=== PATIENT | male | born 1940 | race Two or more races ===

== ENCOUNTER 2018-07-19 08:43 | Emergency (ER) | payer MEDICARE ==
[~2018-07-19] VITALS: Ht 170.2 cm; Wt 86.0 kg
[~2018-07-19 08:43] MED LIST: CARV-50 PO; POTA10TA36 PO; WARF-65 PO
[2018-07-19] MEDS ORDERED: colchicine 0.6mg tablet PO ONE (08:55)
[2018-07-19 10:10] LABS: ALANINE AMINOTRANSFERASE 32 U/L (12-78); ALBUMIN 3.2 G/DL (3.4-5.0); ALBUMIN/GLOBULIN RATIO 0.8 (1.1-1.5); ALKALINE PHOSPHATASE 171 IU/L (46-116); ANION GAP 9 (8-16); ASPARTATE AMINO TRANSFERASE 29 U/L (10-37); BILIRUBIN,TOTAL 1.9 MG/DL (0.1-1.0); BLOOD UREA NITROGEN 31 MG/DL (7-18); BUN/CREATININE RATIO 29.2 (5.4-32.0); C-REACTIVE PROTEIN 1.04 MG/DL (0.0-0.5); CALCIUM 9.2 MG/DL (8.5-10.1); CHLORIDE 102 MMOL/L (99-107); CREATININE 1.06 MG/DL (0.60-1.10); GLUCOSE 96 MG/DL (70-104); POTASSIUM 3.6 MMOL/L (3.5-5.1); SODIUM 139 MMOL/L (135-145); TOTAL PROTEIN 7.2 G/DL (6.4-8.2); eGFR 68 ML/MIN
[2018-07-19 10:45] LABS: BASOPHILS % (AUTO) 0.4 % (0-1); EOSINOPHILS # (AUTO) 0.1 X10'3 (0-0.9); EOSINOPHILS % (AUTO) 1.4 % (0-6); HEMATOCRIT 40.7 % (42.0-52.0); HEMOGLOBIN 13.7 g/dl (14.0-17.9); LYMPHOCYTES # (AUTO) 0.7 X10'3 (1.1-4.8); LYMPHOCYTES % (AUTO) 7.6 % (21-51); MEAN CORPUSCULAR HEMOGLOBIN 28.6 PG (27.0-31.0); MEAN CORPUSCULAR HGB CONC 33.6 g/dL (33.0-36.5); MEAN CORPUSCULAR VOLUME 85.1 FL (78-98); MEAN PLATELET VOLUME 10.2 FL (7.4-10.4); MONOCYTES % (AUTO) 11.4 % (2-12); NEUTROPHILS % (AUTO) 79.2 % (42-75); PLATELET COUNT 180 X10'3 (140-440); RED BLOOD COUNT 4.78 X10'6 (4.70-6.10); RED CELL DISTRIBUTION WIDTH 17.4 % (11.5-14.5); WHITE BLOOD COUNT 8.8 X10'3 (4.5-11.0)
[2018-07-19] MEDS ORDERED: HYDROcodone/acetaminophen 10/325mg tab PO ONE (10:55)
[2018-07-19] MEDS ORDERED: HYDR-4353 PO (11:11)
[2018-07-19 11:48] VITALS: BP 122/66
== END 2018-07-19 11:49 | disposition home or self-care (01) ==
LOC: ER 08:44
DX: M25.522 Pain in left elbow (principal); M25.422 Effusion, left elbow; I48.91 Unspecified atrial fibrillation; E78.00 Pure hypercholesterolemia, unspecified; I13.0 Hypertensive heart and chronic kidney disease with heart failure and stage 1 through stage 4 chronic kidney disease, or unspecified chronic kidney disease; N18.9 Chronic kidney disease, unspecified; I50.9 Heart failure, unspecified; Z90.49 Acquired absence of other specified parts of digestive tract; Z95.0 Presence of cardiac pacemaker; Z79.01 Long term (current) use of anticoagulants; Z79.899 Other long term (current) drug therapy
CPT/HCPCS: 36415; 73080; 80053; 85025; 85651; 86140; 99284

== ENCOUNTER 2021-12-09 16:35 | Emergency (ER) | payer BC, MEDICARE ==
[~2021-12-09] VITALS: Ht 167.6 cm; Wt 72.7 kg
[~2021-12-09 16:35] MED LIST changes: +ATOR20TA66 PO; -CARV-50 PO; +CARV25TA2 PO; +FURO40TA4 PO; +LISI20TA28 PO; -POTA10TA36 PO; +SPIR25TA5 PO; -WARF-65 PO; +WARF1TAB83 PO
[2021-12-09 18:03] LABS: BASOPHILS % (AUTO) 0.5 % (0-1); EOSINOPHILS % (AUTO) 0.5 % (0-6); HEMATOCRIT 34.6 % (42.0-52.0); HEMOGLOBIN 11.5 g/dl (14.0-17.9); LYMPHOCYTES # (AUTO) 0.5 X10'3 (1.1-4.8); LYMPHOCYTES % (AUTO) 13.5 % (21-51); MEAN CORPUSCULAR HEMOGLOBIN 29.2 PG (27.0-31.0); MEAN CORPUSCULAR HGB CONC 33.3 g/dL (33.0-36.5); MEAN CORPUSCULAR VOLUME 87.6 FL (78-98); MEAN PLATELET VOLUME 10.8 FL (7.4-10.4); MONOCYTES # (AUTO) 0.4 X10'3 (0-0.9); MONOCYTES % (AUTO) 11.1 % (2-12); NEUTROPHILS # (AUTO) 2.8 X10'3 (1.8-7.7); NEUTROPHILS % (AUTO) 74.4 % (42-75); PLATELET COUNT 72 X10'3 (140-440); RED BLOOD COUNT 3.94 X10'6 (4.70-6.10); RED CELL DISTRIBUTION WIDTH 16.5 % (11.5-14.5); WHITE BLOOD COUNT 3.8 X10'3 (4.5-11.0)
[2021-12-09 18:15] LABS: ALANINE AMINOTRANSFERASE 48 U/L (12-78); ALBUMIN 3.8 G/DL (3.4-5.0); ALBUMIN/GLOBULIN RATIO 1.2 (1.1-1.5); ALKALINE PHOSPHATASE 144 IU/L (46-116); ANION GAP 9 (8-16); ASPARTATE AMINO TRANSFERASE 40 U/L (10-37); BILIRUBIN,TOTAL 0.8 MG/DL (0.1-1.0); BLOOD UREA NITROGEN 31 MG/DL (7-18); BUN/CREATININE RATIO 22.3 (5.4-32.0); CALCIUM 8.6 MG/DL (8.5-10.1); CHLORIDE 108 MMOL/L (99-107); CREATININE 1.39 MG/DL (0.60-1.10); GLUCOSE 107 MG/DL (70-104); POTASSIUM 4.7 MMOL/L (3.5-5.1); SODIUM 140 MMOL/L (135-145); TOTAL CARBON DIOXIDE 23.5 MMOL/L (24-32); eGFR 49 ML/MIN
[2021-12-09 18:28] LABS: CLARITY,URINE SLIGHTLY CLOUDY (Clear); COLOR,URINE YELLOW (Yellow); GLUCOSE, URINE NEGATIVE (Neg); KETONES,URINE NEGATIVE (Neg); LEUKOCYTE ESTERASE ,URINE NEGATIVE (Neg); NITRITES, URINE NEGATIVE (Neg); OCCULT BLOOD,URINE LARGE (Neg); PROTEIN,URINE NEGATIVE (Neg); UROBILINOGEN,URINE 0.2 E.U/dL (0.2-1.0)
[2021-12-09 18:43] LABS: UA COLLECTION TYPE STRAIGHT CATH
[2021-12-09 18:45] LABS: BACTERIA,URINE NONE SEEN /HPF (Neg); MUCUS STRANDS NONE SEEN /LPF (Neg); RBC,URINE TNTC /HPF (0-2); SQUAMOUS EPITHELIAL CELL,UR NONE SEEN /LPF (FEW); WBC,URINE 0-4 /HPF (0-4)
[2021-12-09] MEDS ORDERED: LIDOcaine 2% 10ml TOPICAL JELLY (Urojet) MM ONE (20:15)
[2021-12-09 20:52] VITALS: BP 115/63
== END 2021-12-09 20:56 | disposition home or self-care (01) ==
LOC: ER 16:36
DX: R33.9 Retention of urine, unspecified (principal); R10.9 Unspecified abdominal pain; I48.91 Unspecified atrial fibrillation; E78.00 Pure hypercholesterolemia, unspecified; I13.0 Hypertensive heart and chronic kidney disease with heart failure and stage 1 through stage 4 chronic kidney disease, or unspecified chronic kidney disease; N18.9 Chronic kidney disease, unspecified; Z90.89 Acquired absence of other organs; Z95.0 Presence of cardiac pacemaker; Z79.899 Other long term (current) drug therapy
CPT/HCPCS: 51702; 80053; 81001; 85025; 99284; A4358

== ENCOUNTER 2022-01-20 12:30 | Emergency (ER) | payer BC ==
[~2022-01-20] VITALS: Ht 167.6 cm; Wt 73.6 kg
[~2022-01-20 12:30] MED LIST changes: +ALBU8.5H17 INH; +CARV-49 PO; -CARV25TA2 PO; +CEFD300C3 PO; +FURO-150 PO; -FURO40TA4 PO; +LACT1CAP26 PO; +PRED20TA PO
[2022-01-20 12:37] VITALS: BP 115/73
[2022-01-20] MEDS ORDERED: LIDOcaine 2% 10ml TOPICAL JELLY (Urojet) TP ONE (14:20)
[2022-01-20 15:12] LABS: CLARITY,URINE CLOUDY (Clear); COLOR,URINE YELLOW (Yellow); GLUCOSE, URINE NEGATIVE (Neg); KETONES,URINE NEGATIVE (Neg); LEUKOCYTE ESTERASE ,URINE TRACE (Neg); NITRITES, URINE NEGATIVE (Neg); OCCULT BLOOD,URINE LARGE (Neg); PROTEIN,URINE 30 mg/dl (Neg); UROBILINOGEN,URINE 0.2 E.U/dL (0.2-1.0)
[2022-01-20 15:18] LABS: UA COLLECTION TYPE VOIDED
[2022-01-20 15:19] LABS: BACTERIA,URINE NONE SEEN /HPF (Neg); MUCUS STRANDS NONE SEEN /LPF (Neg); RBC,URINE 50-100 /HPF (0-2); SQUAMOUS EPITHELIAL CELL,UR NONE SEEN /LPF (FEW); WBC,URINE 0-4 /HPF (0-4)
[2022-01-21] MEDS ORDERED: FLO0.4C PO (14:23)
== END 2022-01-20 15:52 | disposition home or self-care (01) ==
LOC: ER 12:30
DX: T83.098A Other mechanical complication of other urinary catheter, initial encounter (principal); R33.9 Retention of urine, unspecified; I48.91 Unspecified atrial fibrillation; I50.9 Heart failure, unspecified; I13.0 Hypertensive heart and chronic kidney disease with heart failure and stage 1 through stage 4 chronic kidney disease, or unspecified chronic kidney disease; N18.9 Chronic kidney disease, unspecified; E78.00 Pure hypercholesterolemia, unspecified; Z90.49 Acquired absence of other specified parts of digestive tract; Z95.0 Presence of cardiac pacemaker; Y83.9 Surgical procedure, unspecified as the cause of abnormal reaction of the patient, or of later complication, without mention of misadventure at the time of the procedure; Y92.89 Other specified places as the place of occurrence of the external cause
CPT/HCPCS: 51702; 81001; 87088; 99284; A4314; A4340; A4358

== ENCOUNTER 2022-01-21 00:20 | Emergency (ER) | payer BC ==
[~2022-01-21] VITALS: Ht 170.2 cm; Wt 73.6 kg
[2022-01-21 00:45] VITALS: BP_DIAS 78
[2022-01-21 01:33] LABS: BASOPHILS % (AUTO) 0.1 % (0-1); EOSINOPHILS # (AUTO) 0.1 X10'3 (0-0.9); EOSINOPHILS % (AUTO) 0.5 % (0-6); HEMATOCRIT 39.9 % (42.0-52.0); LYMPHOCYTES # (AUTO) 0.6 X10'3 (1.1-4.8); LYMPHOCYTES % (AUTO) 4.9 % (21-51); MEAN CORPUSCULAR HEMOGLOBIN 29.8 PG (27.0-31.0); MEAN CORPUSCULAR HGB CONC 32.4 g/dL (33.0-36.5); MEAN CORPUSCULAR VOLUME 91.9 FL (78-98); MEAN PLATELET VOLUME 10.4 FL (7.4-10.4); MONOCYTES # (AUTO) 1.4 X10'3 (0-0.9); MONOCYTES % (AUTO) 10.4 % (2-12); NEUTROPHILS % (AUTO) 84.1 % (42-75); PLATELET COUNT 147 X10'3 (140-440); RED BLOOD COUNT 4.34 X10'6 (4.70-6.10); RED CELL DISTRIBUTION WIDTH 18.5 % (11.5-14.5); WHITE BLOOD COUNT 13.1 X10'3 (4.5-11.0)
[2022-01-21] MEDS ORDERED: metoprolol tartrate 50mg tablet PO ONE (01:35)
[2022-01-21 01:39] LABS: ALANINE AMINOTRANSFERASE 70 U/L (12-78); ALBUMIN 3.3 G/DL (3.4-5.0); ALKALINE PHOSPHATASE 119 IU/L (46-116); ANION GAP 7 (8-16); ASPARTATE AMINO TRANSFERASE 37 U/L (10-37); BLOOD UREA NITROGEN 41 MG/DL (7-18); BUN/CREATININE RATIO 35.7 (5.4-32.0); CALCIUM 8.6 MG/DL (8.5-10.1); CHLORIDE 104 MMOL/L (99-107); CREATININE 1.15 MG/DL (0.60-1.10); GLUCOSE 110 MG/DL (70-104); POTASSIUM 4.4 MMOL/L (3.5-5.1); SODIUM 140 MMOL/L (135-145); TOTAL CARBON DIOXIDE 28.7 MMOL/L (24-32); TOTAL PROTEIN 6.5 G/DL (6.4-8.2); eGFR 61 ML/MIN
[2022-01-21] MEDS ORDERED: metoprolol tartrate 25mg tablet PO ONE (01:40)
[2022-01-21 01:45] VITALS: BP_SYST 113
[2022-01-21 01:47] LABS: MAGNESIUM 1.7 MG/DL (1.5-2.4)
[2022-01-21] MEDS ORDERED: FLO0.4C PO (14:23)
== END 2022-01-21 02:45 | disposition home or self-care (01) ==
LOC: ER 00:21
DX: I48.91 Unspecified atrial fibrillation (principal); R33.9 Retention of urine, unspecified; N18.9 Chronic kidney disease, unspecified; E78.00 Pure hypercholesterolemia, unspecified; I13.0 Hypertensive heart and chronic kidney disease with heart failure and stage 1 through stage 4 chronic kidney disease, or unspecified chronic kidney disease; I50.9 Heart failure, unspecified; Z90.49 Acquired absence of other specified parts of digestive tract; Z95.0 Presence of cardiac pacemaker
CPT/HCPCS: 36415; 71045; 80053; 83735; 83880; 84484; 85025; 93005; 99285

== ENCOUNTER 2022-01-21 10:04 | Emergency (ER) | payer BC ==
[~2022-01-21] VITALS: Ht 170.2 cm; Wt 71.9 kg
[2022-01-21 10:50] VITALS: BP 111/67
[2022-01-21] MEDS ORDERED: FLO0.4C PO (14:23)
== END 2022-01-21 14:52 | disposition home or self-care (01) ==
LOC: ER 10:05
DX: R33.9 Retention of urine, unspecified (principal); I48.91 Unspecified atrial fibrillation; E78.00 Pure hypercholesterolemia, unspecified; I13.0 Hypertensive heart and chronic kidney disease with heart failure and stage 1 through stage 4 chronic kidney disease, or unspecified chronic kidney disease; N18.9 Chronic kidney disease, unspecified; Z90.89 Acquired absence of other organs; Z95.0 Presence of cardiac pacemaker; Z87.440 Personal history of urinary (tract) infections; Z79.2 Long term (current) use of antibiotics; Z79.899 Other long term (current) drug therapy
CPT/HCPCS: 99284

== ENCOUNTER 2022-01-25 22:58 | Emergency (ER) | payer BC ==
[~2022-01-25] VITALS: Ht 170.2 cm; Wt 63.5 kg
[~2022-01-25 22:58] MED LIST changes: +FLO0.4C PO
[2022-01-26 00:17] LABS: BASOPHILS % (AUTO) 0.5 % (0-1); EOSINOPHILS # (AUTO) 0.1 X10'3 (0-0.9); EOSINOPHILS % (AUTO) 1.1 % (0-6); HEMATOCRIT 38.6 % (42.0-52.0); HEMOGLOBIN 12.7 g/dl (14.0-17.9); LYMPHOCYTES # (AUTO) 0.7 X10'3 (1.1-4.8); LYMPHOCYTES % (AUTO) 6.6 % (21-51); MEAN CORPUSCULAR HEMOGLOBIN 29.9 PG (27.0-31.0); MEAN CORPUSCULAR HGB CONC 32.9 g/dL (33.0-36.5); MEAN CORPUSCULAR VOLUME 90.8 FL (78-98); MEAN PLATELET VOLUME 9.8 FL (7.4-10.4); MONOCYTES # (AUTO) 0.9 X10'3 (0-0.9); MONOCYTES % (AUTO) 8.8 % (2-12); NEUTROPHILS # (AUTO) 8.4 X10'3 (1.8-7.7); PLATELET COUNT 151 X10'3 (140-440); RED BLOOD COUNT 4.25 X10'6 (4.70-6.10); WHITE BLOOD COUNT 10.2 X10'3 (4.5-11.0)
[2022-01-26 00:23] VITALS: BP 113/74
[2022-01-26 00:25] LABS: ALANINE AMINOTRANSFERASE 69 U/L (12-78); ALBUMIN 3.5 G/DL (3.4-5.0); ALBUMIN/GLOBULIN RATIO 0.9 (1.1-1.5); ALKALINE PHOSPHATASE 141 IU/L (46-116); ANION GAP 8 (8-16); ASPARTATE AMINO TRANSFERASE 42 U/L (10-37); BILIRUBIN,TOTAL 1.2 MG/DL (0.1-1.0); BLOOD UREA NITROGEN 36 MG/DL (7-18); CHLORIDE 106 MMOL/L (99-107); GLUCOSE 142 MG/DL (70-104); LIPASE 411 U/L (73-393); POTASSIUM 4.8 MMOL/L (3.5-5.1); SODIUM 140 MMOL/L (135-145); TOTAL CARBON DIOXIDE 25.7 MMOL/L (24-32); TOTAL PROTEIN 7.3 G/DL (6.4-8.2); eGFR 58 ML/MIN
== END 2022-01-26 00:58 | disposition home or self-care (01) ==
LOC: ER 22:58
DX: T83.098A Other mechanical complication of other urinary catheter, initial encounter (principal); I13.0 Hypertensive heart and chronic kidney disease with heart failure and stage 1 through stage 4 chronic kidney disease, or unspecified chronic kidney disease; E13.22 Other specified diabetes mellitus with diabetic chronic kidney disease; N18.9 Chronic kidney disease, unspecified; Z90.49 Acquired absence of other specified parts of digestive tract; Z79.899 Other long term (current) drug therapy
CPT/HCPCS: 36415; 80053; 83690; 85025; 99283

== ENCOUNTER 2022-01-27 01:59 | Emergency (ER) | payer BC ==
[~2022-01-27] VITALS: Ht 170.2 cm; Wt 73.4 kg
[2022-01-27] MEDS ORDERED: HYDROcodone/acetaminophen 5mg/325mg tablet PO ONE (04:20)
--- NOTE | 2022-01-27 04:56 | NUR ---
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 PT C/O INCREASED DISCOMFORT, MD NOTIFIED, ORDERS. MEDICATED WITH NORCO. DC'D CATHETER WITH SEVERAL SM BLOOD CLOTS NOTED AND REPLACED WITH [address] HAN'S ORDERS. PT TOLERATED WITH MILD DISCOMFORT. RESTING QUIETLY NOW WHILE URINE IS DRAINING.
[2022-01-27 05:34] VITALS: BP 111/70
== END 2022-01-27 05:25 | disposition home or self-care (01) ==
LOC: ER 02:00
DX: T85.9XXA Unspecified complication of internal prosthetic device, implant and graft, initial encounter (principal); I13.0 Hypertensive heart and chronic kidney disease with heart failure and stage 1 through stage 4 chronic kidney disease, or unspecified chronic kidney disease; E11.22 Type 2 diabetes mellitus with diabetic chronic kidney disease; N18.9 Chronic kidney disease, unspecified; Z90.49 Acquired absence of other specified parts of digestive tract; Z79.899 Other long term (current) drug therapy
CPT/HCPCS: 99283; C1758; J7030; A4338; A4358; A5200

== ENCOUNTER 2022-01-29 09:29 | Emergency (ER) | payer BC ==
[~2022-01-29] VITALS: Ht 170.2 cm; Wt 74.1 kg
[2022-01-29] MEDS ORDERED: LIDOcaine 2% 10ml TOPICAL JELLY (Urojet) MM ONE (10:35)
[2022-01-29 12:09] VITALS: BP 127/60
[2022-01-30] MEDS ORDERED: CEPH250T PO (16:46)
== END 2022-01-29 12:15 | disposition home or self-care (01) ==
LOC: ER 09:29
DX: R33.9 Retention of urine, unspecified (principal); I13.0 Hypertensive heart and chronic kidney disease with heart failure and stage 1 through stage 4 chronic kidney disease, or unspecified chronic kidney disease; I48.91 Unspecified atrial fibrillation; N18.9 Chronic kidney disease, unspecified; I50.9 Heart failure, unspecified; E78.00 Pure hypercholesterolemia, unspecified; Z90.49 Acquired absence of other specified parts of digestive tract; Z95.0 Presence of cardiac pacemaker
CPT/HCPCS: 51702; 99284; A4314; A4340; A4357; A4358

== ENCOUNTER 2022-01-30 14:16 | Emergency (ER) | payer BC ==
[~2022-01-30] VITALS: Ht 170.2 cm; Wt 72.7 kg
[2022-01-30 14:50] VITALS: BP 135/68
--- NOTE | 2022-01-30 15:55 | NUR ---
reposition of cath re-established urine flow. 600ml urine out ua sent to lab
[2022-01-30 16:12] LABS: CLARITY,URINE CLOUDY (Clear); COLOR,URINE YELLOW (Yellow); GLUCOSE, URINE NEGATIVE (Neg); KETONES,URINE NEGATIVE (Neg); LEUKOCYTE ESTERASE ,URINE TRACE (Neg); NITRITES, URINE NEGATIVE (Neg); OCCULT BLOOD,URINE LARGE (Neg); PH,URINE 5.5 (4.8-8.0); PROTEIN,URINE 100 mg/dl (Neg); UROBILINOGEN,URINE 0.2 E.U/dL (0.2-1.0)
[2022-01-30 16:42] LABS: UA COLLECTION TYPE STRAIGHT CATH
[2022-01-30 16:43] LABS: BACTERIA,URINE 2+ /HPF (Neg); RBC,URINE TNTC /HPF (0-2); SQUAMOUS EPITHELIAL CELL,UR FEW /LPF (FEW)
[2022-01-30 16:44] LABS: MUCUS STRANDS FEW /LPF (Neg)
[2022-01-30] MEDS ORDERED: CEPH250T PO (16:46)
== END 2022-01-30 16:55 | disposition home or self-care (01) ==
LOC: ER 14:18
DX: T83.091A Other mechanical complication of indwelling urethral catheter, initial encounter (principal); N39.0 Urinary tract infection, site not specified; I48.91 Unspecified atrial fibrillation; I13.0 Hypertensive heart and chronic kidney disease with heart failure and stage 1 through stage 4 chronic kidney disease, or unspecified chronic kidney disease; N18.9 Chronic kidney disease, unspecified; E78.00 Pure hypercholesterolemia, unspecified; Z87.440 Personal history of urinary (tract) infections; Z90.89 Acquired absence of other organs; Z95.0 Presence of cardiac pacemaker; Z79.2 Long term (current) use of antibiotics; Z79.899 Other long term (current) drug therapy; Y84.6 Urinary catheterization as the cause of abnormal reaction of the patient, or of later complication, without mention of misadventure at the time of the procedure
CPT/HCPCS: 51798; 81001; 87088; 99284

== ENCOUNTER 2022-01-31 12:37 | Emergency (ER) | payer BC ==
[~2022-01-31] VITALS: Ht 170.2 cm; Wt 72.7 kg
[~2022-01-31 12:37] MED LIST changes: +CEPH250T PO
[2022-01-31 12:48] VITALS: BP 128/68
--- NOTE | 2022-01-31 15:30 | NUR ---
deflated balloon, min cath inserted further, now draining dark yellow urine, 700ml out. Pt said he was feeling better, instructed pt to keep leg bag higher up on leg and to check placement everytime he stands or sits down. Pt verbalized understanding,
== END 2022-01-31 16:07 | disposition home or self-care (01) ==
LOC: ER 12:38
DX: T83.091A Other mechanical complication of indwelling urethral catheter, initial encounter (principal); R33.9 Retention of urine, unspecified; R10.84 Generalized abdominal pain; I48.91 Unspecified atrial fibrillation; E78.00 Pure hypercholesterolemia, unspecified; I13.0 Hypertensive heart and chronic kidney disease with heart failure and stage 1 through stage 4 chronic kidney disease, or unspecified chronic kidney disease; N18.9 Chronic kidney disease, unspecified; Z87.440 Personal history of urinary (tract) infections; Z90.89 Acquired absence of other organs; Z95.0 Presence of cardiac pacemaker; Z79.2 Long term (current) use of antibiotics; Z79.899 Other long term (current) drug therapy; Y84.6 Urinary catheterization as the cause of abnormal reaction of the patient, or of later complication, without mention of misadventure at the time of the procedure
CPT/HCPCS: 99281

== ENCOUNTER 2022-02-03 04:46 | Emergency (ER) | payer BC ==
[~2022-02-03] VITALS: Ht 170.2 cm; Wt 73.6 kg
[2022-02-03 05:24] VITALS: BP 116/77
--- NOTE | 2022-02-03 05:24 | NUR ---
CATHETER BALLON DEFLATED, REPOSITIONED CATHETER PLACEMENT, REINFLATED BALLON. CATHETER NOW DRAINING AND PATENT
== END 2022-02-03 06:06 | disposition home or self-care (01) ==
LOC: ER 04:47
DX: T83.098A Other mechanical complication of other urinary catheter, initial encounter (principal); I48.91 Unspecified atrial fibrillation; I13.0 Hypertensive heart and chronic kidney disease with heart failure and stage 1 through stage 4 chronic kidney disease, or unspecified chronic kidney disease; I50.9 Heart failure, unspecified; N18.9 Chronic kidney disease, unspecified; Z95.0 Presence of cardiac pacemaker; Z90.49 Acquired absence of other specified parts of digestive tract
CPT/HCPCS: 99284

== ENCOUNTER 2022-02-09 17:54 | Inpatient (IN) | payer BC ==
[~2022-02-09] VITALS: Ht 170.2 cm; Wt 72.7 kg
[~2022-02-09 17:54] MED LIST changes: -CEPH250T PO
[2022-02-09 18:27] LABS: BASOPHILS # (AUTO) 0.1 X10'3 (0-0.2); BASOPHILS % (AUTO) 0.8 % (0-1); EOSINOPHILS # (AUTO) 0.2 X10'3 (0-0.9); HEMATOCRIT 38.2 % (42.0-52.0); HEMOGLOBIN 12.2 g/dl (14.0-17.9); LYMPHOCYTES # (AUTO) 0.8 X10'3 (1.1-4.8); LYMPHOCYTES % (AUTO) 9.9 % (21-51); MEAN CORPUSCULAR HEMOGLOBIN 29.4 PG (27.0-31.0); MEAN CORPUSCULAR VOLUME 91.9 FL (78-98); MEAN PLATELET VOLUME 9.7 FL (7.4-10.4); MONOCYTES # (AUTO) 0.9 X10'3 (0-0.9); MONOCYTES % (AUTO) 11.4 % (2-12); NEUTROPHILS # (AUTO) 5.8 X10'3 (1.8-7.7); NEUTROPHILS % (AUTO) 75.9 % (42-75); PLATELET COUNT 200 X10'3 (140-440); RED BLOOD COUNT 4.16 X10'6 (4.70-6.10); RED CELL DISTRIBUTION WIDTH 17.1 % (11.5-14.5); WHITE BLOOD COUNT 7.7 X10'3 (4.5-11.0)
[2022-02-09 18:37] LABS: ALANINE AMINOTRANSFERASE 40 U/L (12-78); ALBUMIN 3.4 G/DL (3.4-5.0); ALKALINE PHOSPHATASE 126 IU/L (46-116); ANION GAP 8 (8-16); ASPARTATE AMINO TRANSFERASE 32 U/L (10-37); BILIRUBIN,TOTAL 1.4 MG/DL (0.1-1.0); BLOOD UREA NITROGEN 35 MG/DL (7-18); CALCIUM 9.1 MG/DL (8.5-10.1); CHLORIDE 104 MMOL/L (99-107); CREATININE 1.13 MG/DL (0.60-1.10); GLUCOSE 105 MG/DL (70-104); POTASSIUM 4.4 MMOL/L (3.5-5.1); SODIUM 139 MMOL/L (135-145); TOTAL CARBON DIOXIDE 27.1 MMOL/L (24-32); TOTAL PROTEIN 6.9 G/DL (6.4-8.2); eGFR 62 ML/MIN
[2022-02-09 18:45] LABS: MAGNESIUM 1.7 MG/DL (1.5-2.4); PHOSPHORUS 3.8 MG/DL (2.3-4.5)
[2022-02-09] MEDS ORDERED: amiodarone 150mg/dext, iso-os 100 ML IV ONE (18:55)
[2022-02-09] MEDS ORDERED: potassium Cl 20 mEq SR tablet PO PRN ×2 (20:10)
[2022-02-09] MEDS ORDERED: ondansetron/PF 4mg/2ml inj IV PRN (20:10)
[2022-02-09] MEDS ORDERED: morphine 2 MG/ML inj. syringe IV PRN (20:10)
[2022-02-09] MEDS ORDERED: acetaminophen 325mg tablet PO PRN ×2 (20:10)
[2022-02-09] MEDS ORDERED: HYDROcodone/acetaminophen 5mg/325mg tablet PO PRN (20:10)
[2022-02-09] MEDS ORDERED: magnesium 4gm in 100ml NS 100 ML IV PRN (20:10)
[2022-02-09] MEDS ORDERED: magnesium Cl slow-release 64mg tablet PO PRN (20:10)
[2022-02-09] MEDS ORDERED: potassium Cl 40MEQ/1/2NS 520ml 520 ML IV PRN (20:10)
[2022-02-09] MEDS: furosemide 20 MG/2 ML vial IV SCH (21:53)
[2022-02-09] MEDS ORDERED: CARV6.253 PO (23:42)
[2022-02-09] MEDS ORDERED: FURO20TA4 PO (23:42)
[2022-02-09 23:49] VITALS: BP 122/64
[2022-02-10 02:00] VITALS: BP 103/67
[2022-02-10] MEDS: temazepam 15mg capsule PO PRN ×2 (02:22→20:45)
[2022-02-10 06:27] LABS: BASOPHILS # (AUTO) 0.1 X10'3 (0-0.2); BASOPHILS % (AUTO) 0.7 % (0-1); EOSINOPHILS # (AUTO) 0.1 X10'3 (0-0.9); EOSINOPHILS % (AUTO) 1.9 % (0-6); HEMATOCRIT 36.6 % (42.0-52.0); LYMPHOCYTES # (AUTO) 0.9 X10'3 (1.1-4.8); LYMPHOCYTES % (AUTO) 12.5 % (21-51); MEAN CORPUSCULAR HEMOGLOBIN 29.7 PG (27.0-31.0); MEAN CORPUSCULAR HGB CONC 32.8 g/dL (33.0-36.5); MEAN CORPUSCULAR VOLUME 90.6 FL (78-98); MEAN PLATELET VOLUME 10.1 FL (7.4-10.4); MONOCYTES # (AUTO) 0.8 X10'3 (0-0.9); MONOCYTES % (AUTO) 11.9 % (2-12); NEUTROPHILS # (AUTO) 5.2 X10'3 (1.8-7.7); PLATELET COUNT 181 X10'3 (140-440); RED BLOOD COUNT 4.04 X10'6 (4.70-6.10); RED CELL DISTRIBUTION WIDTH 16.7 % (11.5-14.5); WHITE BLOOD COUNT 7.1 X10'3 (4.5-11.0)
[2022-02-10 06:42] LABS: ALANINE AMINOTRANSFERASE 32 U/L (12-78); ALBUMIN 3.1 G/DL (3.4-5.0); ALKALINE PHOSPHATASE 115 IU/L (46-116); ANION GAP 4 (8-16); ASPARTATE AMINO TRANSFERASE 27 U/L (10-37); BILIRUBIN,TOTAL 1.1 MG/DL (0.1-1.0); BLOOD UREA NITROGEN 35 MG/DL (7-18); BUN/CREATININE RATIO 29.4 (5.4-32.0); CALCIUM 9.1 MG/DL (8.5-10.1); CHLORIDE 104 MMOL/L (99-107); CREATININE 1.19 MG/DL (0.60-1.10); GLUCOSE 96 MG/DL (70-104); SODIUM 135 MMOL/L (135-145); TOTAL PROTEIN 6.3 G/DL (6.4-8.2); eGFR 59 ML/MIN
--- NOTE | 2022-02-10 06:51 | NUR ---
Patient in room PCU 3018. I have received report from Gwen GARVIN and had the opportunity to ask questions and assume patient care.
[2022-02-10 06:58] VITALS: BP 119/68
[2022-02-10] MEDS: lisinopril 20mg tablet PO SCH (07:33)
[2022-02-10] MEDS: heparin, porcine 5000 units/ml vial SQ SCH ×2 (07:33→20:47)
[2022-02-10] MEDS: furosemide 20 MG/2 ML vial IV SCH ×2 (07:33→20:55)
[2022-02-10] MEDS: atorvastatin 20mg tablet PO SCH (07:33)
[2022-02-10] MEDS: carVEDilol 3.125mg tablet PO SCH ×2 (07:33→20:46)
[2022-02-10] MEDS: spironolactone 25 MG tablet PO SCH (07:34)
[2022-02-10] MEDS: K and/or MAG REPLACEMENT MC SCH ×2 (07:34→20:00)
[2022-02-10] MEDS ORDERED: FLU VACC QS2022-23(6MOS UP)/PF 60 MCG/0.5 ML SYRINGE IMVAC ONE (10:30)
[2022-02-10 11:30] VITALS: BP 107/59
[2022-02-10] MEDS ORDERED: FLO0.4C PO (12:21)
[2022-02-10] MEDS ORDERED: FURO40TA4 PO (12:21)
[2022-02-10] MEDS ORDERED: CARV6.253 PO (12:21)
--- NOTE | 2022-02-10 14:14 | NUR ---
PAGER ID: [phone] MESSAGE: [id number] Grigalba, new onset sharp tenderness in RUQ, abdomen more distended than this am. x2 BM today. Giving zofran for stomach upset, vital signs wnl. Thank you, Mel GARVIN
[2022-02-10 15:30] VITALS: BP 113/62
[2022-02-10 18:00] VITALS: BP 104/45
--- NOTE | 2022-02-10 18:20 | NUR ---
Problems reprioritized. Patient report given, questions answered & plan of care reviewed with Belia GARVIN.
[2022-02-10 22:00] VITALS: BP 109/55
[2022-02-11 02:00] VITALS: BP 113/67
--- NOTE | 2022-02-11 06:05 | NUR ---
Problems reprioritized. Patient report given, questions answered & plan of care reviewed with Mel GARVIN.
[2022-02-11 07:33] LABS: BASOPHILS # (AUTO) 0.1 X10'3 (0-0.2); BASOPHILS % (AUTO) 0.9 % (0-1); EOSINOPHILS # (AUTO) 0.2 X10'3 (0-0.9); EOSINOPHILS % (AUTO) 2.7 % (0-6); HEMATOCRIT 34.5 % (42.0-52.0); HEMOGLOBIN 11.4 g/dl (14.0-17.9); LYMPHOCYTES # (AUTO) 0.7 X10'3 (1.1-4.8); LYMPHOCYTES % (AUTO) 10.2 % (21-51); MEAN CORPUSCULAR HEMOGLOBIN 29.9 PG (27.0-31.0); MEAN CORPUSCULAR HGB CONC 33.2 g/dL (33.0-36.5); MEAN CORPUSCULAR VOLUME 90.3 FL (78-98); MONOCYTES # (AUTO) 0.8 X10'3 (0-0.9); MONOCYTES % (AUTO) 11.2 % (2-12); NEUTROPHILS # (AUTO) 5.4 X10'3 (1.8-7.7); PLATELET COUNT 152 X10'3 (140-440); RED BLOOD COUNT 3.82 X10'6 (4.70-6.10); RED CELL DISTRIBUTION WIDTH 16.9 % (11.5-14.5); WHITE BLOOD COUNT 7.2 X10'3 (4.5-11.0)
[2022-02-11] MEDS: furosemide 20 MG/2 ML vial IV SCH ×2 (07:57→20:38)
[2022-02-11] MEDS: lisinopril 20mg tablet PO SCH (07:58)
[2022-02-11] MEDS: atorvastatin 20mg tablet PO SCH (07:58)
[2022-02-11] MEDS: carVEDilol 3.125mg tablet PO SCH ×2 (07:58→20:37)
[2022-02-11] MEDS: heparin, porcine 5000 units/ml vial SQ SCH ×2 (07:58→20:30)
[2022-02-11] MEDS: spironolactone 25 MG tablet PO SCH (07:58)
[2022-02-11] MEDS: K and/or MAG REPLACEMENT MC SCH ×2 (08:00→20:00)
[2022-02-11 08:06] LABS: ALANINE AMINOTRANSFERASE 27 U/L (12-78); ALBUMIN 2.8 G/DL (3.4-5.0); ALKALINE PHOSPHATASE 103 IU/L (46-116); ANION GAP 7 (8-16); ASPARTATE AMINO TRANSFERASE 29 U/L (10-37); BILIRUBIN,TOTAL 1.3 MG/DL (0.1-1.0); BLOOD UREA NITROGEN 34 MG/DL (7-18); BUN/CREATININE RATIO 30.4 (5.4-32.0); CALCIUM 8.9 MG/DL (8.5-10.1); CHLORIDE 104 MMOL/L (99-107); CREATININE 1.12 MG/DL (0.60-1.10); GLUCOSE 88 MG/DL (70-104); SODIUM 135 MMOL/L (135-145); TOTAL CARBON DIOXIDE 24.5 MMOL/L (24-32); TOTAL PROTEIN 5.7 G/DL (6.4-8.2); eGFR 63 ML/MIN
[2022-02-11 08:21] VITALS: BP 113/58
[2022-02-11 10:38] VITALS: BP 96/54
[2022-02-11 15:03] VITALS: BP 108/63
[2022-02-11 18:00] VITALS: BP 111/64
[2022-02-11] MEDS: amiodarone 200mg tablet PO SCH (20:29)
[2022-02-11] MEDS: temazepam 15mg capsule PO PRN (21:50)
[2022-02-11 22:00] VITALS: BP 102/58
[2022-02-12 02:09] VITALS: BP 103/54
--- NOTE | 2022-02-12 06:41 | NUR ---
Problems reprioritized. Patient report given, questions answered & plan of care reviewed with darcie GARVIN.
--- NOTE | 2022-02-12 06:50 | NUR ---
Patient in room PCU 3018. I have received report from Vanna and had the opportunity to ask questions and assume patient care.
[2022-02-12 06:55] LABS: BASOPHILS # (AUTO) 0.1 X10'3 (0-0.2); BASOPHILS % (AUTO) 0.7 % (0-1); EOSINOPHILS # (AUTO) 0.3 X10'3 (0-0.9); EOSINOPHILS % (AUTO) 3.4 % (0-6); HEMATOCRIT 35.8 % (42.0-52.0); HEMOGLOBIN 11.8 g/dl (14.0-17.9); LYMPHOCYTES # (AUTO) 0.6 X10'3 (1.1-4.8); LYMPHOCYTES % (AUTO) 7.9 % (21-51); MEAN CORPUSCULAR HEMOGLOBIN 29.8 PG (27.0-31.0); MEAN CORPUSCULAR VOLUME 90.4 FL (78-98); MEAN PLATELET VOLUME 10.2 FL (7.4-10.4); MONOCYTES % (AUTO) 12.8 % (2-12); NEUTROPHILS # (AUTO) 5.6 X10'3 (1.8-7.7); NEUTROPHILS % (AUTO) 75.2 % (42-75); PLATELET COUNT 158 X10'3 (140-440); RED BLOOD COUNT 3.96 X10'6 (4.70-6.10); RED CELL DISTRIBUTION WIDTH 16.6 % (11.5-14.5); WHITE BLOOD COUNT 7.4 X10'3 (4.5-11.0)
[2022-02-12 07:31] LABS: ALBUMIN/GLOBULIN RATIO 0.9 (1.1-1.5); ANION GAP 6 (8-16); ASPARTATE AMINO TRANSFERASE 28 U/L (10-37); BILIRUBIN,TOTAL 1.7 MG/DL (0.1-1.0); BLOOD UREA NITROGEN 37 MG/DL (7-18); BUN/CREATININE RATIO 25.3 (5.4-32.0); CHLORIDE 101 MMOL/L (99-107); CREATININE 1.46 MG/DL (0.60-1.10); GLUCOSE 86 MG/DL (70-104); POTASSIUM 4.3 MMOL/L (3.5-5.1); SODIUM 136 MMOL/L (135-145); TOTAL CARBON DIOXIDE 29.2 MMOL/L (24-32); TOTAL PROTEIN 6.2 G/DL (6.4-8.2); eGFR 46 ML/MIN
[2022-02-12 07:32] LABS: ALANINE AMINOTRANSFERASE 29 U/L (12-78); ALKALINE PHOSPHATASE 110 IU/L (46-116)
[2022-02-12 07:53] VITALS: BP 107/65
[2022-02-12] MEDS: K and/or MAG REPLACEMENT MC SCH (08:00)
[2022-02-12] MEDS: spironolactone 25 MG tablet PO SCH (08:12)
[2022-02-12] MEDS: carVEDilol 3.125mg tablet PO SCH (08:12)
[2022-02-12] MEDS: atorvastatin 20mg tablet PO SCH (08:12)
[2022-02-12] MEDS: heparin, porcine 5000 units/ml vial SQ SCH (08:12)
[2022-02-12] MEDS: amiodarone 200mg tablet PO SCH (08:13)
[2022-02-12] MEDS: lisinopril 20mg tablet PO SCH (08:37)
[2022-02-12] MEDS: furosemide 20 MG/2 ML vial IV SCH (08:37)
[2022-02-12 11:14] VITALS: BP 97/53
[2022-02-12] MEDS ORDERED: TRAZ-251 PO (14:51)
[2022-02-12] MEDS ORDERED: AMIO200T67 PO (14:51)
[2022-02-12 15:30] VITALS: BP 95/58
--- NOTE | 2022-02-12 17:01 | NUR ---
Agree with assessment charted by Ashanti Robert LVN.
== END 2022-02-12 16:53 | disposition home or self-care (01) | DRG 314 ==
LOC: ER 17:54 → ED HOLD 20:12 → PCU 3S 23:35
PROVIDERS: ADMIT Internal Medicine; ATTEND Family Medicine
DX: T82.119A Breakdown (mechanical) of unspecified cardiac electronic device, initial encounter (principal); I50.23 Acute on chronic systolic (congestive) heart failure; T82.118A Breakdown (mechanical) of other cardiac electronic device, initial encounter; I13.0 Hypertensive heart and chronic kidney disease with heart failure and stage 1 through stage 4 chronic kidney disease, or unspecified chronic kidney disease; I48.91 Unspecified atrial fibrillation; E78.00 Pure hypercholesterolemia, unspecified; I25.10 Atherosclerotic heart disease of native coronary artery without angina pectoris; N18.30 Chronic kidney disease, stage 3 unspecified; N40.0 Benign prostatic hyperplasia without lower urinary tract symptoms; E78.5 Hyperlipidemia, unspecified; Y71.2 Prosthetic and other implants, materials and accessory cardiovascular devices associated with adverse incidents; D64.9 Anemia, unspecified; Y83.8 Other surgical procedures as the cause of abnormal reaction of the patient, or of later complication, without mention of misadventure at the time of the procedure; Z79.01 Long term (current) use of anticoagulants; Z90.49 Acquired absence of other specified parts of digestive tract; Z95.810 Presence of automatic (implantable) cardiac defibrillator; Y92.89 Other specified places as the place of occurrence of the external cause
CPT/HCPCS: 36415; 71045; 80053; 83735; 83880; 84100; 84484; 85025; 85610; 87081; 90686; 93005; 93308; 96365; 97116; 97161; 97530; 99285; G0378; J0282; J1644; J1940; J2405

== ENCOUNTER 2022-02-21 20:18 | Emergency (ER) | payer BC ==
[~2022-02-21] VITALS: Ht 170.2 cm; Wt 72.0 kg
[~2022-02-21 20:18] MED LIST changes: -ALBU8.5H17 INH; +AMIO200T67 PO; -CARV-49 PO; +CARV6.253 PO; -CEFD300C3 PO; -FURO-150 PO; +FURO40TA4 PO; -LACT1CAP26 PO; -PRED20TA PO; +TRAZ-251 PO
[2022-02-21 20:21] VITALS: BP 136/79
[2022-02-21] MEDS ORDERED: LIDOcaine 2% 10ml TOPICAL JELLY (Urojet) MM ONE (21:10)
--- NOTE | 2022-02-21 21:46 | NUR ---
Dr Webber made aware that the mni was changed and nice yellow urine output now and that the old catheter had a clot stuck in the tip of it.
--- NOTE | 2022-02-21 22:19 | NUR ---
pt updated that Dr Lyon is here and will see him shortly
== END 2022-02-21 22:46 | disposition home or self-care (01) ==
LOC: ER 20:19
DX: T83.86XA Thrombosis due to genitourinary prosthetic devices, implants and grafts, initial encounter (principal); E78.00 Pure hypercholesterolemia, unspecified; G89.29 Other chronic pain; I13.0 Hypertensive heart and chronic kidney disease with heart failure and stage 1 through stage 4 chronic kidney disease, or unspecified chronic kidney disease; N18.9 Chronic kidney disease, unspecified; I50.9 Heart failure, unspecified; Z79.899 Other long term (current) drug therapy
CPT/HCPCS: 51702; 93005; 99284; A4358

== ENCOUNTER 2022-03-07 16:44 | Emergency (ER) | payer BC ==
[~2022-03-07] VITALS: Ht 170.2 cm; Wt 68.2 kg
[2022-03-07 17:54] VITALS: BP 108/77
[2022-03-07 18:09] LABS: BASOPHILS % (AUTO) 0.6 % (0-1); EOSINOPHILS % (AUTO) 0.2 % (0-6); HEMATOCRIT 40.9 % (42.0-52.0); HEMOGLOBIN 13.3 g/dl (14.0-17.9); LYMPHOCYTES # (AUTO) 0.8 X10'3 (1.1-4.8); MEAN CORPUSCULAR HEMOGLOBIN 29.3 PG (27.0-31.0); MEAN CORPUSCULAR HGB CONC 32.6 g/dL (33.0-36.5); MEAN PLATELET VOLUME 9.4 FL (7.4-10.4); MONOCYTES % (AUTO) 11.9 % (2-12); NEUTROPHILS # (AUTO) 6.7 X10'3 (1.8-7.7); NEUTROPHILS % (AUTO) 78.3 % (42-75); PLATELET COUNT 244 X10'3 (140-440); RED BLOOD COUNT 4.55 X10'6 (4.70-6.10); RED CELL DISTRIBUTION WIDTH 17.3 % (11.5-14.5); WHITE BLOOD COUNT 8.6 X10'3 (4.5-11.0)
[2022-03-07 18:21] LABS: ALANINE AMINOTRANSFERASE 105 U/L (12-78); ALBUMIN 3.7 G/DL (3.4-5.0); ALBUMIN/GLOBULIN RATIO 1.1 (1.1-1.5); ALKALINE PHOSPHATASE 149 IU/L (46-116); ANION GAP 12 (8-16); ASPARTATE AMINO TRANSFERASE 82 U/L (10-37); BILIRUBIN,TOTAL 1.8 MG/DL (0.1-1.0); BLOOD UREA NITROGEN 71 MG/DL (7-18); CALCIUM 9.3 MG/DL (8.5-10.1); CHLORIDE 102 MMOL/L (99-107); CREATININE 2.03 MG/DL (0.60-1.10); GLUCOSE 92 MG/DL (70-104); POTASSIUM 4.8 MMOL/L (3.5-5.1); SODIUM 136 MMOL/L (135-145); TOTAL CARBON DIOXIDE 21.6 MMOL/L (24-32); TOTAL PROTEIN 7.2 G/DL (6.4-8.2); eGFR 32 ML/MIN
[2022-03-07 18:48] LABS: CLARITY,URINE CLEAR (Clear); COLOR,URINE YELLOW (Yellow); GLUCOSE, URINE NEGATIVE (Neg); KETONES,URINE NEGATIVE (Neg); LEUKOCYTE ESTERASE ,URINE SMALL (Neg); NITRITES, URINE NEGATIVE (Neg); OCCULT BLOOD,URINE SMALL (Neg); PROTEIN,URINE NEGATIVE (Neg); UROBILINOGEN,URINE 0.2 E.U/dL (0.2-1.0)
[2022-03-07 18:52] LABS: UA COLLECTION TYPE FOLEY CATH
[2022-03-07 18:55] LABS: BACTERIA,URINE 1+ /HPF (Neg); RBC,URINE 0-2 /HPF (0-2); SQUAMOUS EPITHELIAL CELL,UR FEW /LPF (FEW); WBC CLUMPS,URINE FEW /HPF (NEGATIVE)
[2022-03-07] MEDS ORDERED: CEPH-585 PO (21:31)
[2022-03-07] MEDS ORDERED: cephalexin 500mg capsule PO ONE (21:35)
--- NOTE | 2022-03-07 21:55 | NUR ---
took off his leg securement device. Deflated balloon to the min and advanced it per MD orders and reinflated balloon and new securement device to right thigh and an extra securement device given to the pt.
== END 2022-03-07 21:58 | disposition home or self-care (01) ==
LOC: ER 16:45
DX: T83.9XXA Unspecified complication of genitourinary prosthetic device, implant and graft, initial encounter (principal); N39.0 Urinary tract infection, site not specified; I11.9 Hypertensive heart disease without heart failure; E78.00 Pure hypercholesterolemia, unspecified; I13.2 Hypertensive heart and chronic kidney disease with heart failure and with stage 5 chronic kidney disease, or end stage renal disease; E11.22 Type 2 diabetes mellitus with diabetic chronic kidney disease; N18.6 End stage renal disease; Z90.49 Acquired absence of other specified parts of digestive tract; Z79.1 Long term (current) use of non-steroidal anti-inflammatories (NSAID); Z79.899 Other long term (current) drug therapy; Z79.2 Long term (current) use of antibiotics
CPT/HCPCS: 36415; 71045; 74176; 80053; 81001; 85025; 87077; 87088; 87186; 93005; 99285; A5200

== ENCOUNTER 2022-03-09 23:47 | Emergency (ER) | payer BC ==
[~2022-03-09] VITALS: Ht 170.2 cm; Wt 72.7 kg
[~2022-03-09 23:47] MED LIST changes: +CEPH-585 PO
[2022-03-10 07:31] LABS: CLARITY,URINE CLOUDY (Clear); COLOR,URINE YELLOW (Yellow); GLUCOSE, URINE NEGATIVE (Neg); KETONES,URINE NEGATIVE (Neg); LEUKOCYTE ESTERASE ,URINE TRACE (Neg); NITRITES, URINE NEGATIVE (Neg); OCCULT BLOOD,URINE LARGE (Neg); PH,URINE 5.5 (4.8-8.0); PROTEIN,URINE 100 mg/dl (Neg); UROBILINOGEN,URINE 0.2 E.U/dL (0.2-1.0)
[2022-03-10 07:38] LABS: UA COLLECTION TYPE CLN CATCH MIDSTREAM
[2022-03-10 07:40] LABS: RBC,URINE TNTC /HPF (0-2)
[2022-03-10 07:41] LABS: BACTERIA,URINE 1+ /HPF (Neg); SQUAMOUS EPITHELIAL CELL,UR FEW /LPF (FEW)
[2022-03-10 07:42] LABS: WBC CLUMPS,URINE FEW /HPF (NEGATIVE)
[2022-03-10 07:46] LABS: BASOPHILS % (AUTO) 0.6 % (0-1); EOSINOPHILS % (AUTO) 0.6 % (0-6); HEMOGLOBIN 14.2 g/dl (14.0-17.9); LYMPHOCYTES # (AUTO) 0.8 X10'3 (1.1-4.8); LYMPHOCYTES % (AUTO) 11.1 % (21-51); MEAN CORPUSCULAR HEMOGLOBIN 29.8 PG (27.0-31.0); MEAN CORPUSCULAR VOLUME 90.4 FL (78-98); MEAN PLATELET VOLUME 9.3 FL (7.4-10.4); MONOCYTES # (AUTO) 0.9 X10'3 (0-0.9); MONOCYTES % (AUTO) 11.7 % (2-12); NEUTROPHILS # (AUTO) 5.7 X10'3 (1.8-7.7); PLATELET COUNT 249 X10'3 (140-440); RED BLOOD COUNT 4.76 X10'6 (4.70-6.10); RED CELL DISTRIBUTION WIDTH 17.4 % (11.5-14.5); WHITE BLOOD COUNT 7.5 X10'3 (4.5-11.0)
--- NOTE | 2022-03-10 07:48 | NUR ---
Educated the on min cath care and how to deflate and inflate the balloon. Pt reviewed the process with me and stated that he understood the process. The brother also stated that he understood the process.
[2022-03-10 07:57] LABS: ALANINE AMINOTRANSFERASE 116 U/L (12-78); ALBUMIN 3.7 G/DL (3.4-5.0); ALKALINE PHOSPHATASE 163 IU/L (46-116); ANION GAP 11 (8-16); ASPARTATE AMINO TRANSFERASE 76 U/L (10-37); BILIRUBIN,TOTAL 1.5 MG/DL (0.1-1.0); BLOOD UREA NITROGEN 73 MG/DL (7-18); BUN/CREATININE RATIO 36.9 (5.4-32.0); CALCIUM 9.2 MG/DL (8.5-10.1); CHLORIDE 104 MMOL/L (99-107); CREATININE 1.98 MG/DL (0.60-1.10); GLUCOSE 92 MG/DL (70-104); POTASSIUM 5.5 MMOL/L (3.5-5.1); SODIUM 137 MMOL/L (135-145); TOTAL CARBON DIOXIDE 22.5 MMOL/L (24-32); TOTAL PROTEIN 7.4 G/DL (6.4-8.2); eGFR 33 ML/MIN
[2022-03-10 08:05] LABS: MAGNESIUM 2.2 MG/DL (1.5-2.4)
[2022-03-10 11:58] VITALS: BP 138/87
== END 2022-03-10 12:00 | disposition home or self-care (01) ==
LOC: ER 23:47
DX: T83.038A Leakage of other urinary catheter, initial encounter (principal); E87.5 Hyperkalemia; R10.30 Lower abdominal pain, unspecified; R06.02 Shortness of breath; I48.91 Unspecified atrial fibrillation; E78.00 Pure hypercholesterolemia, unspecified; I13.0 Hypertensive heart and chronic kidney disease with heart failure and stage 1 through stage 4 chronic kidney disease, or unspecified chronic kidney disease; N18.9 Chronic kidney disease, unspecified; Z87.440 Personal history of urinary (tract) infections; Z90.89 Acquired absence of other organs; Z95.0 Presence of cardiac pacemaker; Z79.2 Long term (current) use of antibiotics; Z79.899 Other long term (current) drug therapy; Y84.6 Urinary catheterization as the cause of abnormal reaction of the patient, or of later complication, without mention of misadventure at the time of the procedure
CPT/HCPCS: 36415; 51702; 71045; 80053; 81001; 83735; 83880; 84145; 84484; 85025; 87088; 93005; 99285; A4358

== ENCOUNTER 2022-04-05 11:15 | Emergency (ER) | payer BC ==
[~2022-04-05] VITALS: Ht 170.2 cm; Wt 72.0 kg
[~2022-04-05 11:15] MED LIST changes: -CEPH-585 PO
[2022-04-05 15:39] LABS: BASOPHILS # (AUTO) 0.1 X10'3 (0-0.2); BASOPHILS % (AUTO) 0.7 % (0-1); EOSINOPHILS % (AUTO) 0 % (0-6); HEMATOCRIT 38.9 % (42.0-52.0); HEMOGLOBIN 12.5 g/dl (14.0-17.9); LYMPHOCYTES # (AUTO) 0.3 X10'3 (1.1-4.8); LYMPHOCYTES % (AUTO) 2.7 % (21-51); MEAN CORPUSCULAR HEMOGLOBIN 27.8 PG (27.0-31.0); MEAN CORPUSCULAR HGB CONC 32.1 g/dL (33.0-36.5); MEAN CORPUSCULAR VOLUME 86.7 FL (78-98); MEAN PLATELET VOLUME 9.2 FL (7.4-10.4); MONOCYTES # (AUTO) 1.1 X10'3 (0-0.9); MONOCYTES % (AUTO) 8.7 % (2-12); NEUTROPHILS # (AUTO) 10.8 X10'3 (1.8-7.7); NEUTROPHILS % (AUTO) 87.9 % (42-75); PLATELET COUNT 240 X10'3 (140-440); RED BLOOD COUNT 4.49 X10'6 (4.70-6.10); RED CELL DISTRIBUTION WIDTH 17.6 % (11.5-14.5); WHITE BLOOD COUNT 12.3 X10'3 (4.5-11.0)
[2022-04-05 16:04] LABS: ALANINE AMINOTRANSFERASE 37 U/L (12-78); ALBUMIN/GLOBULIN RATIO 0.9 (1.1-1.5); ALKALINE PHOSPHATASE 122 IU/L (46-116); ANION GAP 10 (8-16); ASPARTATE AMINO TRANSFERASE 33 U/L (10-37); BILIRUBIN,TOTAL 1.9 MG/DL (0.1-1.0); BLOOD UREA NITROGEN 85 MG/DL (7-18); BUN/CREATININE RATIO 39.7 (5.4-32.0); CALCIUM 8.9 MG/DL (8.5-10.1); CHLORIDE 99 MMOL/L (99-107); CREATININE 2.14 MG/DL (0.60-1.10); GLUCOSE 90 MG/DL (70-104); SODIUM 134 MMOL/L (135-145); TOTAL CARBON DIOXIDE 25.2 MMOL/L (24-32); TOTAL PROTEIN 6.3 G/DL (6.4-8.2); eGFR 30 ML/MIN
[2022-04-05 17:03] VITALS: BP 92/61
[2022-04-05] MEDS ORDERED: vancomycin/NS 1 GM ADD-VANTAGE 250 ML IV ONE (17:20)
[2022-04-05] MEDS ORDERED: cephalexin 250mg capsule PO ONE (17:45)
[2022-04-05] MEDS ORDERED: ondansetron 4mg rapidly disintigrating tab PO ONE (17:45)
[2022-04-05] MEDS ORDERED: clindamycin 150mg capsule PO ONE (17:45)
[2022-04-05] MEDS ORDERED: bacitracin 15gm ointment TP ONE (18:05)
--- NOTE | 2022-04-05 19:56 | NUR ---
CALL RAD ABOUT CT NOT BEING READ WAS TOLD IT WILL BE PRIORITISED. CALLED AT 1954
[2022-04-05] MEDS ORDERED: acetaminophen 325mg tablet PO ONE (20:05)
[2022-04-05] MEDS ORDERED: HYDROcodone/acetaminophen 5mg/325mg tablet PO ONE (20:25)
[2022-04-05] MEDS ORDERED: CLIN150C8 PO (21:46)
[2022-04-05] MEDS ORDERED: CEPH250T PO (21:46)
== END 2022-04-05 23:41 | disposition home or self-care (01) ==
LOC: ER 11:15
DX: L03.116 Cellulitis of left lower limb (principal); I13.10 Hypertensive heart and chronic kidney disease without heart failure, with stage 1 through stage 4 chronic kidney disease, or unspecified chronic kidney disease; N18.9 Chronic kidney disease, unspecified; Z94.0 Kidney transplant status; Z90.49 Acquired absence of other specified parts of digestive tract; Z79.899 Other long term (current) drug therapy; Z79.1 Long term (current) use of non-steroidal anti-inflammatories (NSAID)
CPT/HCPCS: 36415; 70450; 73610; 73700; 80053; 85025; 99285

== ENCOUNTER 2022-05-14 19:08 | Emergency (ER) | payer BC ==
[~2022-05-14] VITALS: Ht 170.2 cm; Wt 85.0 kg
[~2022-05-14 19:08] MED LIST changes: +AMIO200T27 PO; -AMIO200T67 PO; +APIX2.5T PO; +LINE600T14 PO; -LISI20TA28 PO; -TRAZ-251 PO; -WARF1TAB83 PO
[2022-05-14 21:53] LABS: BASOPHILS # (AUTO) 0.1 X10'3 (0-0.2); BASOPHILS % (AUTO) 0.6 % (0-1); EOSINOPHILS % (AUTO) 0.6 % (0-6); HEMOGLOBIN 11.4 g/dl (14.0-17.9); LYMPHOCYTES # (AUTO) 0.6 X10'3 (1.1-4.8); LYMPHOCYTES % (AUTO) 7.8 % (21-51); MEAN CORPUSCULAR HGB CONC 31.6 g/dL (33.0-36.5); MEAN CORPUSCULAR VOLUME 85.5 FL (78-98); MEAN PLATELET VOLUME 9.7 FL (7.4-10.4); MONOCYTES % (AUTO) 12.3 % (2-12); NEUTROPHILS # (AUTO) 6.4 X10'3 (1.8-7.7); NEUTROPHILS % (AUTO) 78.7 % (42-75); PLATELET COUNT 150 X10'3 (140-440); RED BLOOD COUNT 4.21 X10'6 (4.70-6.10); WHITE BLOOD COUNT 8.2 X10'3 (4.5-11.0)
[2022-05-14 21:58] LABS: ALANINE AMINOTRANSFERASE 50 U/L (12-78); ALBUMIN 2.9 G/DL (3.4-5.0); ALBUMIN/GLOBULIN RATIO 0.8 (1.1-1.5); ALKALINE PHOSPHATASE 180 IU/L (46-116); ANION GAP 13 (8-16); ASPARTATE AMINO TRANSFERASE 42 U/L (10-37); BILIRUBIN,TOTAL 2.3 MG/DL (0.1-1.0); BLOOD UREA NITROGEN 73 MG/DL (7-18); BUN/CREATININE RATIO 34.3 (5.4-32.0); CALCIUM 8.7 MG/DL (8.5-10.1); CHLORIDE 103 MMOL/L (99-107); CREATININE 2.13 MG/DL (0.60-1.10); GLUCOSE 82 MG/DL (70-104); POTASSIUM 5.5 MMOL/L (3.5-5.1); SODIUM 137 MMOL/L (135-145); TOTAL CARBON DIOXIDE 21.3 MMOL/L (24-32); TOTAL PROTEIN 6.7 G/DL (6.4-8.2); eGFR 30 ML/MIN
[2022-05-14 22:36] LABS: ANISOCYTOSIS 3+; PLATELET ESTIMATE NORMAL
[2022-05-14 22:37] LABS: BURR CELLS 1+; POIKILOCYTOSIS 1+
[2022-05-14 22:38] LABS: ELLIPTOCYTES 1+; POLYCHROMASIA FEW
[2022-05-14] MEDS ORDERED: furosemide 10 MG/1 ML 10ml inj IV ONE (22:40)
[2022-05-14 23:17] VITALS: BP 112/72
[2022-05-20] MEDS ORDERED: FLO0.4C PO (04:53)
[2022-05-20] MEDS ORDERED: APIX2.5T PO (04:53)
[2022-05-21] MEDS ORDERED: FURO40TA4 PO (14:20)
[2022-05-24] MEDS ORDERED: LEVO25TA7 PO (12:54)
== END 2022-05-14 23:20 | disposition home or self-care (01) ==
LOC: ER 19:09
DX: I50.9 Heart failure, unspecified (principal); E87.6 Hypokalemia; I13.0 Hypertensive heart and chronic kidney disease with heart failure and stage 1 through stage 4 chronic kidney disease, or unspecified chronic kidney disease; N18.9 Chronic kidney disease, unspecified
CPT/HCPCS: 36415; 71045; 80053; 83880; 84484; 85008; 85025; 93005; 96374; 99285; J1940

== ENCOUNTER 2022-06-03 17:11 | Inpatient (IN) | payer BC ==
[~2022-06-03] VITALS: Ht 170.2 cm; Wt 78.2 kg
[~2022-06-03 17:11] MED LIST changes: +LEVO25TA7 PO; -LINE600T14 PO; -SPIR25TA5 PO
--- NOTE | 2022-06-03 18:24 | NUR ---
Reported to ED MD Huerta of pts SBPs 80s/50s. Reported to MD pt recently admited and DCd from here 05/24/22 and report from EMS pt had EF of 24%. No order for fluid bolus, to continue to monitor.
[2022-06-03 18:38] LABS: BASOPHILS % (AUTO) 0 % (0-1); EOSINOPHILS % (AUTO) 0.1 % (0-6); HEMOGLOBIN 10.4 g/dl (14.0-17.9); LYMPHOCYTES # (AUTO) 0.4 X10'3 (1.1-4.8); LYMPHOCYTES % (AUTO) 5.1 % (21-51); MEAN CORPUSCULAR HEMOGLOBIN 27.3 PG (27.0-31.0); MEAN CORPUSCULAR HGB CONC 32.5 g/dL (33.0-36.5); MEAN CORPUSCULAR VOLUME 84.1 FL (78-98); MEAN PLATELET VOLUME 10.7 FL (7.4-10.4); MONOCYTES # (AUTO) 0.7 X10'3 (0-0.9); MONOCYTES % (AUTO) 8.7 % (2-12); NEUTROPHILS # (AUTO) 7.4 X10'3 (1.8-7.7); NEUTROPHILS % (AUTO) 86.1 % (42-75); PLATELET COUNT 147 X10'3 (140-440); RED BLOOD COUNT 3.81 X10'6 (4.70-6.10); WHITE BLOOD COUNT 8.6 X10'3 (4.5-11.0)
[2022-06-03 19:01] LABS: ALANINE AMINOTRANSFERASE 32 U/L (12-78); ALBUMIN 2.4 G/DL (3.4-5.0); ALBUMIN/GLOBULIN RATIO 0.6 (1.1-1.5); ALKALINE PHOSPHATASE 142 IU/L (46-116); ANION GAP 10 (8-16); ASPARTATE AMINO TRANSFERASE 33 U/L (10-37); BLOOD UREA NITROGEN 118 MG/DL (7-18); BUN/CREATININE RATIO 40.1 (5.4-32.0); CALCIUM 8.5 MG/DL (8.5-10.1); CHLORIDE 99 MMOL/L (99-107); CREATININE 2.94 MG/DL (0.60-1.10); GLUCOSE 94 MG/DL (70-104); SODIUM 130 MMOL/L (135-145); TOTAL CARBON DIOXIDE 21.2 MMOL/L (24-32); TOTAL PROTEIN 6.3 G/DL (6.4-8.2); eGFR 21 ML/MIN
[2022-06-03] MEDS ORDERED: SODIUM ZIRCONIUM CYCLOSILICATE 10 GM POWD.PACK PO STA (19:21)
[2022-06-03] MEDS ORDERED: dextrose 50%-water 50ml dispensing syringe IV ONE (19:25)
[2022-06-03] MEDS ORDERED: furosemide 40mg/4ml inj IV ONE (19:25)
[2022-06-03] MEDS ORDERED: calcium chloride 100 MG/1 ML inj IV ONE (19:25)
[2022-06-03] MEDS ORDERED: insulin regular, human U-100 3ml vial - multi-dose IV ONE (19:25)
[2022-06-03 19:51] LABS: ANISOCYTOSIS 3+; PLATELET ESTIMATE NORMAL
[2022-06-03 19:52] LABS: BURR CELLS 1+
[2022-06-03 19:59] LABS: POLYCHROMASIA FEW; SCHISTOCYTES FEW; TARGET CELLS FEW; TEAR DROP CELLS FEW
[2022-06-03] MEDS ORDERED: SPIR25TA5 PO (20:38)
--- NOTE | 2022-06-03 21:34 | NUR ---
Patient resting comfortably on family justen at bedside. He will be admitted.
[2022-06-03] MEDS ORDERED: mag hydrox/Alum hydrox/simeth 30ml oral suspension PO PRN (21:50)
[2022-06-03] MEDS ORDERED: potassium Cl 40MEQ/1/2NS 520ml 520 ML IV PRN (21:50)
[2022-06-03] MEDS ORDERED: HYDROcodone/acetaminophen 10/325mg tab PO PRN (21:50)
[2022-06-03] MEDS ORDERED: ondansetron/PF 4mg/2ml inj IV PRN (21:50)
[2022-06-03] MEDS ORDERED: acetaminophen 325mg tablet PO PRN ×2 (21:50)
[2022-06-03] MEDS ORDERED: magnesium hydroxide 30ml (MOM) UD suspension PO PRN (21:50)
[2022-06-03] MEDS ORDERED: magnesium 4gm in 100ml NS 100 ML IV PRN (21:50)
[2022-06-03] MEDS ORDERED: HYDROcodone/acetaminophen 5mg/325mg tablet PO PRN (21:50)
[2022-06-03] MEDS ORDERED: potassium Cl 20 mEq SR tablet PO PRN ×2 (21:50)
[2022-06-03 21:51] LABS: ALBUMIN 2.4 G/DL (3.4-5.0); ANION GAP 10 (8-16); BLOOD UREA NITROGEN 119 MG/DL (7-18); BUN/CREATININE RATIO 39.7 (5.4-32.0); CHLORIDE 101 MMOL/L (99-107); GLUCOSE 80 MG/DL (70-104); POTASSIUM 5.2 MMOL/L (3.5-5.1); SODIUM 132 MMOL/L (135-145); TOTAL CARBON DIOXIDE 21.5 MMOL/L (24-32); eGFR 20 ML/MIN
--- NOTE | 2022-06-03 23:16 | NUR ---
Moved patient to a hospital bed
[2022-06-04] MEDS ORDERED: LEVO25TA7 PO (01:36)
--- NOTE | 2022-06-04 04:00 | NUR ---
Patient awake and asking for something for pain and a juice.
[2022-06-04 04:26] LABS: BASOPHILS % (AUTO) 0.2 % (0-1); EOSINOPHILS % (AUTO) 0 % (0-6); HEMATOCRIT 32.6 % (42.0-52.0); HEMOGLOBIN 10.3 g/dl (14.0-17.9); LYMPHOCYTES # (AUTO) 0.5 X10'3 (1.1-4.8); LYMPHOCYTES % (AUTO) 5.8 % (21-51); MEAN CORPUSCULAR HEMOGLOBIN 26.4 PG (27.0-31.0); MEAN CORPUSCULAR HGB CONC 31.5 g/dL (33.0-36.5); MEAN CORPUSCULAR VOLUME 83.9 FL (78-98); MEAN PLATELET VOLUME 11.4 FL (7.4-10.4); MONOCYTES # (AUTO) 0.7 X10'3 (0-0.9); MONOCYTES % (AUTO) 7.2 % (2-12); NEUTROPHILS # (AUTO) 7.8 X10'3 (1.8-7.7); NEUTROPHILS % (AUTO) 86.8 % (42-75); PLATELET COUNT 152 X10'3 (140-440); RED BLOOD COUNT 3.89 X10'6 (4.70-6.10); RED CELL DISTRIBUTION WIDTH 23.8 % (11.5-14.5)
[2022-06-04 04:39] LABS: ALANINE AMINOTRANSFERASE 29 U/L (12-78); ALBUMIN 2.3 G/DL (3.4-5.0); ALBUMIN/GLOBULIN RATIO 0.6 (1.1-1.5); ALKALINE PHOSPHATASE 137 IU/L (46-116); ANION GAP 10 (8-16); ASPARTATE AMINO TRANSFERASE 31 U/L (10-37); BLOOD UREA NITROGEN 122 MG/DL (7-18); BUN/CREATININE RATIO 40.4 (5.4-32.0); CALCIUM 8.8 MG/DL (8.5-10.1); CHLORIDE 100 MMOL/L (99-107); CREATININE 3.02 MG/DL (0.60-1.10); GLUCOSE 60 MG/DL (70-104); MAGNESIUM 2.5 MG/DL (1.5-2.4); POTASSIUM 5.2 MMOL/L (3.5-5.1); SODIUM 133 MMOL/L (135-145); TOTAL CARBON DIOXIDE 22.6 MMOL/L (24-32); eGFR 20 ML/MIN
[2022-06-04] MEDS ORDERED: DOBUTamine-DoBUTrex 500mg/D5W 250 ML IV SCH (07:40)
--- NOTE | 2022-06-04 07:56 | NUR ---
PAGED DR GREENE REGARDING THE ORDER FOR DOBUTAMINE DRIP , PER MD START THE DOBUTAMINE DRIP TO HELP DIURESIS THE PT.
[2022-06-04] MEDS ORDERED: spironolactone 25 MG tablet PO SCH (08:00)
[2022-06-04] MEDS: K and/or MAG REPLACEMENT MC SCH ×2 (08:00→20:00)
[2022-06-04] MEDS: docusate sod 100mg capsule PO SCH ×2 (08:00→18:47)
[2022-06-04] MEDS ORDERED: carvedilol 6.25mg tablet PO SCH (08:00)
[2022-06-04] MEDS: amiodarone 200mg tablet PO SCH (08:20)
[2022-06-04] MEDS: levoTHYROXINE 25mcg tablet PO SCH (08:20)
[2022-06-04] MEDS: DOBUTamine-DoBUTrex 500mg/D5W 250 ML IV SCH (08:20)
--- NOTE | 2022-06-04 08:20 | NUR ---
PT WORKING ON HIS BREAKFAST TRAY.
[2022-06-04] MEDS: apixaban 2.5mg tablet PO SCH ×2 (08:21→18:48)
[2022-06-04] MEDS: tamsulosin 0.4mg capsule PO SCH ×2 (08:21→18:48)
[2022-06-04] MEDS: atorvastatin 20mg tablet PO SCH (08:21)
--- NOTE | 2022-06-04 09:30 | NUR ---
DR GREENE AT BEDSIDE ,INFORMED THAT PT HAS EDEMA AND PRO BNP IS ELEVATED AND PT RECEVIED 40 MG LASIX LAST NIGHT, PER MD VERBAL ORDERS FOR LASIX 20 MG IV BID. ASKED ABOUT THE DOBUTAMINE GOAL , PER MD NO GOAL JUST KEEP INFUSING AT 5 MCG .
--- NOTE | 2022-06-04 10:04 | NUR ---
MATHEMATICS ACADEMIC CHAIR AT BEDSIDE.
[2022-06-04 15:11] VITALS: BP 95/38
[2022-06-04 16:00] VITALS: BP 91/52
--- NOTE | 2022-06-04 16:42 | NUR ---
Patient in bed with the head of the bed elevated to semi-fowlers position. Patient watching TV. Patient has no signs or symptoms of distress. call light within reach and all personal belongings within reach.
[2022-06-04] MEDS ORDERED: ondansetron 4mg rapidly disintigrating tab PO PRN (17:40)
[2022-06-04] MEDS: furosemide 20 MG/2 ML vial IV SCH (18:47)
--- NOTE | 2022-06-04 18:55 | NUR ---
Problems reprioritized. Patient report given, questions answered & plan of care reviewed with VIRGIE Jefferson.
--- NOTE | 2022-06-04 19:39 | NUR ---
Patient in bed with the head of the bed elevated to semi-fowlers position. Patient has no signs or symptoms of distress. call light within reach of the patient and all personal belongings within reach
[2022-06-04] MEDS ORDERED: enoxaparin 40mg/0.4ml syringe SQ SCH (20:00)
[2022-06-05] VITALS (7 sets, daily range): BP systolic 95–106; BP diastolic 60–69
[2022-06-05] MEDS: DOBUTamine-DoBUTrex 500mg/D5W 250 ML IV SCH (05:13)
--- NOTE | 2022-06-05 05:32 | NUR ---
Patient in bed with the head of the bed elevated to semi-fowlers position. Patient resting in bed with his eyes open. Call light within reach of patient and all of the patient personal belongings within reach
[2022-06-05 06:35] LABS: BASOPHILS % (AUTO) 0.4 % (0-1); EOSINOPHILS % (AUTO) 0.2 % (0-6); HEMATOCRIT 31.2 % (42.0-52.0); LYMPHOCYTES # (AUTO) 0.4 X10'3 (1.1-4.8); LYMPHOCYTES % (AUTO) 7.2 % (21-51); MEAN CORPUSCULAR HEMOGLOBIN 26.9 PG (27.0-31.0); MEAN CORPUSCULAR VOLUME 84.1 FL (78-98); MEAN PLATELET VOLUME 10.6 FL (7.4-10.4); MONOCYTES # (AUTO) 0.6 X10'3 (0-0.9); MONOCYTES % (AUTO) 9.2 % (2-12); NEUTROPHILS # (AUTO) 5.2 X10'3 (1.8-7.7); PLATELET COUNT 148 X10'3 (140-440); RED CELL DISTRIBUTION WIDTH 23.2 % (11.5-14.5); WHITE BLOOD COUNT 6.3 X10'3 (4.5-11.0)
[2022-06-05 07:16] LABS: ALANINE AMINOTRANSFERASE 31 U/L (12-78); ALBUMIN 2.3 G/DL (3.4-5.0); ALBUMIN/GLOBULIN RATIO 0.6 (1.1-1.5); ALKALINE PHOSPHATASE 144 IU/L (46-116); ANION GAP 10 (8-16); BILIRUBIN,TOTAL 1.6 MG/DL (0.1-1.0); BLOOD UREA NITROGEN 126 MG/DL (7-18); BUN/CREATININE RATIO 42.9 (5.4-32.0); CALCIUM 8.3 MG/DL (8.5-10.1); CHLORIDE 99 MMOL/L (99-107); CREATININE 2.94 MG/DL (0.60-1.10); GLUCOSE 85 MG/DL (70-104); MAGNESIUM 2.4 MG/DL (1.5-2.4); SODIUM 131 MMOL/L (135-145); TOTAL CARBON DIOXIDE 21.7 MMOL/L (24-32); eGFR 21 ML/MIN
[2022-06-05 07:17] LABS: ASPARTATE AMINO TRANSFERASE 52 U/L (10-37)
[2022-06-05 07:18] LABS: POTASSIUM 6.4 MMOL/L (3.5-5.1)
[2022-06-05] MEDS ORDERED: sodium polystyrene sulfonate 15gm/60ml oral suspension PO ONE (07:50)
[2022-06-05] MEDS ORDERED: dextrose 50%-water 50ml dispensing syringe IV ONE (07:50)
[2022-06-05] MEDS ORDERED: sodium bicarbonate (8.4%) 1 mEq/ml syringe IV ONE (07:50)
[2022-06-05] MEDS ORDERED: calcium gluconate inj. 1 GM in normal saline 100ml IV soln 100 ML IV ONE (07:50)
[2022-06-05] MEDS ORDERED: insulin regular, human 10 units/0.1 ml syringe IV ONE (07:50)
[2022-06-05] MEDS: docusate sod 100mg capsule PO SCH ×2 (08:00→20:00)
[2022-06-05] MEDS: K and/or MAG REPLACEMENT MC SCH ×2 (08:00→20:00)
[2022-06-05] MEDS ORDERED: sodium bicarbonate (8.4%) inj. 1 MEQ/ML ML IV ONE (08:05)
[2022-06-05] MEDS ORDERED: CALCIUM GLUC 1gm/50ml NACL,iso 50 ML IV ONE (08:10)
--- NOTE | 2022-06-05 08:45 | NUR ---
sodium bicarb 8.4% 50 meq manually administered - would not let me scan
[2022-06-05] MEDS: furosemide 20 MG/2 ML vial IV SCH ×2 (08:50→18:56)
[2022-06-05] MEDS: levoTHYROXINE 25mcg tablet PO SCH (08:59)
[2022-06-05] MEDS: amiodarone 200mg tablet PO SCH (08:59)
[2022-06-05] MEDS: tamsulosin 0.4mg capsule PO SCH ×2 (08:59→18:56)
[2022-06-05] MEDS: apixaban 2.5mg tablet PO SCH ×2 (08:59→18:57)
[2022-06-05] MEDS: atorvastatin 20mg tablet PO SCH (08:59)
--- NOTE | 2022-06-05 09:29 | NUR ---
Per MD re: scheduled 20 lasix IVP change parameters to hold if MAP less than 60.
[2022-06-05 09:46] LABS: ANISOCYTOSIS 3+; BURR CELLS 2+; PLATELET ESTIMATE NORMAL
[2022-06-05 09:47] LABS: ELLIPTOCYTES 1+
[2022-06-05 09:48] LABS: POLYCHROMASIA FEW; SCHISTOCYTES FEW
--- NOTE | 2022-06-05 17:48 | NUR ---
Paged PAGER ID: [phone] MESSAGE: [id number]. Frankijonelheraclio. Brother is here. FYI. Pena [phone]
[2022-06-05 21:44] LABS: COLOR,URINE YELLOW (Yellow); GLUCOSE, URINE NEGATIVE (Neg); KETONES,URINE NEGATIVE (Neg); LEUKOCYTE ESTERASE ,URINE NEGATIVE (Neg); NITRITES, URINE NEGATIVE (Neg); OCCULT BLOOD,URINE NEGATIVE (Neg); PROTEIN,URINE NEGATIVE (Neg); UROBILINOGEN,URINE 0.2 E.U/dL (0.2-1.0)
[2022-06-05 21:47] LABS: TOTAL PROTEIN,URINE RANDOM 8.9 MG/DL
[2022-06-05 21:53] LABS: CLARITY,URINE SLIGHTLY CLOUDY (Clear); UA COLLECTION TYPE NON-SPECIFIED
[2022-06-05 21:54] LABS: BACTERIA,URINE FEW /HPF (Neg); MUCUS STRANDS FEW /LPF (Neg); RBC,URINE 0-2 /HPF (0-2); SQUAMOUS EPITHELIAL CELL,UR FEW /LPF (FEW); WBC,URINE 0-4 /HPF (0-4)
[2022-06-05 22:41] LABS: UA EOSINOPHILS NO EOS /HPF
[2022-06-06] VITALS (13 sets, daily range): BP systolic 92–122; BP diastolic 57–86
[2022-06-06] MEDS: DOBUTamine-DoBUTrex 500mg/D5W 250 ML IV SCH (02:13)
--- NOTE | 2022-06-06 05:21 | NUR ---
Patient in bed with the head of the bed elevated to semi-fowlers position. Patient in bed with his eyes open. Patient has no signs or symptoms of distress. call light within rech of the patient and all persoonal belongings within reach
[2022-06-06 06:41] LABS: BASOPHILS % (AUTO) 0.3 % (0-1); EOSINOPHILS % (AUTO) 0.3 % (0-6); HEMATOCRIT 31.3 % (42.0-52.0); LYMPHOCYTES # (AUTO) 0.3 X10'3 (1.1-4.8); LYMPHOCYTES % (AUTO) 6.3 % (21-51); MEAN CORPUSCULAR HEMOGLOBIN 26.5 PG (27.0-31.0); MEAN CORPUSCULAR HGB CONC 31.9 g/dL (33.0-36.5); MEAN CORPUSCULAR VOLUME 83.1 FL (78-98); MEAN PLATELET VOLUME 9.9 FL (7.4-10.4); MONOCYTES # (AUTO) 0.5 X10'3 (0-0.9); MONOCYTES % (AUTO) 9.7 % (2-12); NEUTROPHILS # (AUTO) 4.2 X10'3 (1.8-7.7); NEUTROPHILS % (AUTO) 83.4 % (42-75); PLATELET COUNT 147 X10'3 (140-440); RED BLOOD COUNT 3.77 X10'6 (4.70-6.10); RED CELL DISTRIBUTION WIDTH 23.5 % (11.5-14.5)
[2022-06-06 07:13] LABS: ALANINE AMINOTRANSFERASE 30 U/L (12-78); ALBUMIN 2.4 G/DL (3.4-5.0); ALBUMIN/GLOBULIN RATIO 0.7 (1.1-1.5); ALKALINE PHOSPHATASE 147 IU/L (46-116); ANION GAP 9 (8-16); ASPARTATE AMINO TRANSFERASE 33 U/L (10-37); BILIRUBIN,TOTAL 1.9 MG/DL (0.1-1.0); BLOOD UREA NITROGEN 110 MG/DL (7-18); BUN/CREATININE RATIO 39.9 (5.4-32.0); CALCIUM 8.3 MG/DL (8.5-10.1); CHLORIDE 101 MMOL/L (99-107); CREATININE 2.76 MG/DL (0.60-1.10); GLUCOSE 87 MG/DL (70-104); MAGNESIUM 2.2 MG/DL (1.5-2.4); POTASSIUM 4.6 MMOL/L (3.5-5.1); SODIUM 135 MMOL/L (135-145); TOTAL CARBON DIOXIDE 24.7 MMOL/L (24-32); eGFR 22 ML/MIN
[2022-06-06] MEDS: tamsulosin 0.4mg capsule PO SCH ×2 (07:35→19:28)
[2022-06-06] MEDS: furosemide 20 MG/2 ML vial IV SCH ×2 (07:36→19:28)
[2022-06-06] MEDS: amiodarone 200mg tablet PO SCH (07:36)
[2022-06-06] MEDS: levoTHYROXINE 25mcg tablet PO SCH (07:36)
[2022-06-06] MEDS: atorvastatin 20mg tablet PO SCH (07:36)
[2022-06-06] MEDS: apixaban 2.5mg tablet PO SCH ×2 (07:36→19:28)
[2022-06-06] MEDS: docusate sod 100mg capsule PO SCH ×2 (07:49→19:28)
[2022-06-06] MEDS: K and/or MAG REPLACEMENT MC SCH ×2 (08:00→18:30)
--- NOTE | 2022-06-06 11:26 | NUR ---
Pt was on 5mcg/kg IV dobutamine but I dropped the rate to 3mcg/kg as per Dr Bradley's verbal orders. I will monitor vitals and notify Dr if any BP changes occur.
[2022-06-07] VITALS: BP 103/68
[2022-06-07 02:00] VITALS: BP 106/68
[2022-06-07] MEDS: DOBUTamine-DoBUTrex 500mg/D5W 250 ML IV SCH (03:58)
[2022-06-07 04:00] VITALS: BP 106/68
--- NOTE | 2022-06-07 06:27 | NUR ---
Problems reprioritized. Patient report given, questions answered & plan of care reviewed with VIRGIE Akins.
[2022-06-07 06:36] LABS: BASOPHILS % (AUTO) 0.9 % (0-1); EOSINOPHILS % (AUTO) 0.8 % (0-6); HEMATOCRIT 31.9 % (42.0-52.0); HEMOGLOBIN 10.1 g/dl (14.0-17.9); LYMPHOCYTES # (AUTO) 0.3 X10'3 (1.1-4.8); LYMPHOCYTES % (AUTO) 6.5 % (21-51); MEAN CORPUSCULAR HEMOGLOBIN 26.3 PG (27.0-31.0); MEAN CORPUSCULAR HGB CONC 31.8 g/dL (33.0-36.5); MEAN CORPUSCULAR VOLUME 82.8 FL (78-98); MEAN PLATELET VOLUME 9.8 FL (7.4-10.4); MONOCYTES # (AUTO) 0.6 X10'3 (0-0.9); MONOCYTES % (AUTO) 11.4 % (2-12); NEUTROPHILS % (AUTO) 80.4 % (42-75); PLATELET COUNT 162 X10'3 (140-440); RED BLOOD COUNT 3.85 X10'6 (4.70-6.10); RED CELL DISTRIBUTION WIDTH 23.4 % (11.5-14.5)
[2022-06-07 06:56] LABS: ALANINE AMINOTRANSFERASE 24 U/L (12-78); ALBUMIN 2.6 G/DL (3.4-5.0); ALBUMIN/GLOBULIN RATIO 0.7 (1.1-1.5); ALKALINE PHOSPHATASE 157 IU/L (46-116); ANION GAP 9 (8-16); ASPARTATE AMINO TRANSFERASE 28 U/L (10-37); BILIRUBIN,TOTAL 1.8 MG/DL (0.1-1.0); BLOOD UREA NITROGEN 109 MG/DL (7-18); BUN/CREATININE RATIO 42.6 (5.4-32.0); CALCIUM 8.4 MG/DL (8.5-10.1); CHLORIDE 102 MMOL/L (99-107); CREATININE 2.56 MG/DL (0.60-1.10); GLUCOSE 95 MG/DL (70-104); MAGNESIUM 2.4 MG/DL (1.5-2.4); POTASSIUM 4.5 MMOL/L (3.5-5.1); SODIUM 135 MMOL/L (135-145); TOTAL CARBON DIOXIDE 24.5 MMOL/L (24-32); TOTAL PROTEIN 6.4 G/DL (6.4-8.2); eGFR 24 ML/MIN
[2022-06-07 07:00] VITALS: BP 98/64
[2022-06-07] MEDS: tamsulosin 0.4mg capsule PO SCH (07:43)
[2022-06-07] MEDS: furosemide 20 MG/2 ML vial IV SCH (07:43)
[2022-06-07] MEDS: atorvastatin 20mg tablet PO SCH (07:43)
[2022-06-07] MEDS: apixaban 2.5mg tablet PO SCH (07:43)
[2022-06-07] MEDS: amiodarone 200mg tablet PO SCH (07:43)
[2022-06-07] MEDS: levoTHYROXINE 25mcg tablet PO SCH (07:43)
[2022-06-07] MEDS: docusate sod 100mg capsule PO SCH (07:55)
[2022-06-07] MEDS: K and/or MAG REPLACEMENT MC SCH (07:55)
[2022-06-07 08:17] LABS: ANISOCYTOSIS 3+; PLATELET ESTIMATE NORMAL; SCHISTOCYTES FEW
[2022-06-07 08:19] LABS: HYPOCHROMASIA 1+; POLYCHROMASIA 1+
[2022-06-07 08:21] LABS: LARGE PLATELETS FEW
[2022-06-07 08:23] LABS: BURR CELLS 2+; ELLIPTOCYTES 1+
--- NOTE | 2022-06-07 10:13 | NUR ---
Pt asked to move to commode at bedside. After using commode pt stated he wanted to be moved to chair. After getting help to move him to the chair he refused to sit and wanted to stand. After he said he wanted to walk around while being delirious and in a confused state. Pt is more active and moving better today, however has increased confusion as to what is happening and what I have told him about. Another staff member helped put him back in bed and a tabs alarm was hooked up to ensure safety. Pt was agitated and I will continue to monitor.
--- NOTE | 2022-06-07 10:29 | NUR ---
PAGER ID: [phone] MESSAGE: Henry [phone], Pt is extra confused and agitated today. Pt is in bed with tab alarm on. Tashi [phone]
--- NOTE | 2022-06-07 10:40 | NUR ---
Tried to contact daughter to give her an update on her father's mental condition but phone rang through to voicemail but her voicemail was not set up.
--- NOTE | 2022-06-07 11:12 | NUR ---
Initial: Pt admit for CHF exacerbation with hyperkalemia and generalized weakness. Currently on a heart healthy diet and overall eating well, documented with average 43% PO intake 06/04-06/05 though up to 100% PO intake since 06/06, bringing overall average PO intake to 68% since admit. Pt meeting estimated nutrient needs at this time. LBM 06/06. No nutrition intervention implemented at this time. Will continue to follow. Recommendations: 1) Continue heart healthy diet 2) Routine bowel care 3) Scaled weight this admit; subsequent weekly scaled weights Addendum: 06/07/22 at [address] Amended: Links added.
--- NOTE | 2022-06-07 11:57 | NUR ---
Pt was seen by Dr Bradley in his room, Dr Bradley is thinking of discharge today for the pt but asked that we stop the dobutamine drip for the pt. I just stopped the drip as per the Dr's order. I will monitor BP and notify of any changes.
[2022-06-07 12:30] VITALS: BP 106/69
[2022-06-07] MEDS ORDERED: CARV3.122 PO (14:15)
[2022-06-07] MEDS ORDERED: LEVO75TA PO (14:15)
[2022-06-07] MEDS ORDERED: FURO20TA4 PO (14:15)
--- NOTE | 2022-06-07 14:51 | NUR ---
Pt has discharge orders in from Dr Bradley. I have been reaching out to family to see when they can pick him up. His daughter Birgit is first contact but I have gotten voicemail twice but the voicemail is not set up. I called his brother Lee however he did not answer, I did leave his brother a voicemail. I will keep contacting them for discharge planning. Usually they are free and in the hospital around 1700.
[2022-06-07 16:00] VITALS: BP 105/69
--- NOTE | 2022-06-07 17:41 | NUR ---
Pt has been DC'd as per 's orders. Pt was unhooked from all IV and tele. Education was provided to pt and family member. Pt was at base line confusion so most education was given to brother that pt lives with. Pt's brother stated they would pickling grader meds at pharmacy and schedule follow up appointment. Pt was unable to effectively sign DC papers but asked his brother to sign for him. Pt and family gathered up all belongings and were sent with pt. I wheeled pt down to lobby in wheelchair. I helped load pt into private vehicle destined for home.
[2022-06-08] MEDS ORDERED: levoTHYROXINE 25mcg tablet PO SCH (07:30)
== END 2022-06-07 17:41 | disposition home health service (06) | DRG 291 ==
LOC: ER 17:11 → ED HOLD 21:54 → PCU 3S 06-04 14:35
PROVIDERS: ADMIT Family Medicine; ATTEND Internal Medicine
DX: I13.0 Hypertensive heart and chronic kidney disease with heart failure and stage 1 through stage 4 chronic kidney disease, or unspecified chronic kidney disease (principal); I50.23 Acute on chronic systolic (congestive) heart failure; N17.0 Acute kidney failure with tubular necrosis; N18.4 Chronic kidney disease, stage 4 (severe); E87.1 Hypo-osmolality and hyponatremia; E87.5 Hyperkalemia; E03.9 Hypothyroidism, unspecified; W06.XXXA Fall from bed, initial encounter; E78.00 Pure hypercholesterolemia, unspecified; I95.9 Hypotension, unspecified; I48.0 Paroxysmal atrial fibrillation; I42.9 Cardiomyopathy, unspecified; D63.8 Anemia in other chronic diseases classified elsewhere; R26.2 Difficulty in walking, not elsewhere classified; F03.90 Unspecified dementia, unspecified severity, without behavioral disturbance, psychotic disturbance, mood disturbance, and anxiety; I07.1 Rheumatic tricuspid insufficiency; I27.20 Pulmonary hypertension, unspecified; N40.0 Benign prostatic hyperplasia without lower urinary tract symptoms; Z79.01 Long term (current) use of anticoagulants; Z79.899 Other long term (current) drug therapy; Z90.49 Acquired absence of other specified parts of digestive tract; Z95.810 Presence of automatic (implantable) cardiac defibrillator; Y93.89 Activity, other specified; Y92.89 Other specified places as the place of occurrence of the external cause; Y99.8 Other external cause status
CPT/HCPCS: 36415; 71045; 80048; 80053; 81001; 82570; 82948; 83735; 83880; 84132; 84156; 84300; 84484; 85008; 85025; 87081; 87207; 93005; 93925; 96374; 96375; 97110; 97116; 97161; 97530; 99285; A6222; A6258; A6446; A6449; G0378; J0610; J1250; J1815; J1940; J3490; J7030

== ENCOUNTER 2022-06-09 11:10 | Inpatient (IN) | payer BC ==
[~2022-06-09] VITALS: Ht 175.3 cm; Wt 107.0 kg
[~2022-06-09 11:10] MED LIST changes: +CARV3.122 PO; -CARV6.253 PO; +FURO20TA4 PO; -FURO40TA4 PO; -LEVO25TA7 PO; +LEVO75TA PO
[2022-06-09 12:05] LABS: BASOPHILS % (AUTO) 0.3 % (0-1); EOSINOPHILS % (AUTO) 0.2 % (0-6); HEMATOCRIT 34.5 % (42.0-52.0); LYMPHOCYTES # (AUTO) 0.5 X10'3 (1.1-4.8); LYMPHOCYTES % (AUTO) 12.5 % (21-51); MEAN CORPUSCULAR HEMOGLOBIN 26.7 PG (27.0-31.0); MEAN CORPUSCULAR VOLUME 83.3 FL (78-98); MEAN PLATELET VOLUME 9.2 FL (7.4-10.4); MONOCYTES # (AUTO) 0.5 X10'3 (0-0.9); MONOCYTES % (AUTO) 12.2 % (2-12); NEUTROPHILS % (AUTO) 74.8 % (42-75); PLATELET COUNT 190 X10'3 (140-440); RED BLOOD COUNT 4.14 X10'6 (4.70-6.10); RED CELL DISTRIBUTION WIDTH 23.5 % (11.5-14.5)
[2022-06-09 12:17] LABS: ALANINE AMINOTRANSFERASE 27 U/L (12-78); ALBUMIN 2.7 G/DL (3.4-5.0); ALBUMIN/GLOBULIN RATIO 0.7 (1.1-1.5); ALKALINE PHOSPHATASE 150 IU/L (46-116); ANION GAP 10 (8-16); ASPARTATE AMINO TRANSFERASE 36 U/L (10-37); BILIRUBIN,TOTAL 2.6 MG/DL (0.1-1.0); BLOOD UREA NITROGEN 111 MG/DL (7-18); CALCIUM 8.7 MG/DL (8.5-10.1); CHLORIDE 102 MMOL/L (99-107); CREATININE 2.58 MG/DL (0.60-1.10); GLUCOSE 59 MG/DL (70-104); SODIUM 138 MMOL/L (135-145); TOTAL CARBON DIOXIDE 26.1 MMOL/L (24-32); TOTAL PROTEIN 6.5 G/DL (6.4-8.2); eGFR 24 ML/MIN
--- NOTE | 2022-06-09 12:17 | NUR ---
Pt BIB EMS after pt's brother found him lying on floor at 0830. Brother had checked him at 0100 and pt was sleeping normally at that time. Pt has hx of liver, kidney failure, CHF w/ 10% EF. Pt has significant edema. Bruising on R hip from fall. EMS reports from brother that pt has been GCS 14 for past several weeks. Pt takes Apixaban as a blood thinner. Has been told he is not a candidate for dialysis. BS was 79 by EMS. Pt currently with CT @ 1215.
[2022-06-09 12:21] LABS: ETHANOL < 0.010 GM/DL (0.0-0.010)
[2022-06-09 12:30] LABS: NUCLEATED RED BLOOD CELLS 2 /100WBC (0-0); TOTAL CELLS COUNTED 100
[2022-06-09 12:31] LABS: ANISOCYTOSIS 3+; PLATELET ESTIMATE NORMAL
[2022-06-09 12:32] LABS: HYPOCHROMASIA 1+; POLYCHROMASIA FEW
[2022-06-09 12:33] LABS: BURR CELLS 1+; ELLIPTOCYTES 1+; LARGE PLATELETS FEW; SCHISTOCYTES FEW
[2022-06-09] MEDS ORDERED: acetaminophen 325mg tablet PO ONE (13:55)
[2022-06-09] MEDS ORDERED: HYDROcodone/acetaminophen 5mg/325mg tablet PO ONE (13:55)
--- NOTE | 2022-06-09 16:50 | NUR ---
Pt had Tylenol and [place] per MD order and now appears to be resting more comfortably.
[2022-06-09] MEDS ORDERED: potassium Cl 40MEQ/1/2NS 520ml 520 ML IV PRN (20:05)
[2022-06-09] MEDS ORDERED: magnesium hydroxide 30ml (MOM) UD suspension PO PRN (20:05)
[2022-06-09] MEDS ORDERED: ondansetron 4mg rapidly disintigrating tab PO PRN (20:05)
[2022-06-09] MEDS ORDERED: magnesium Cl slow-release 64mg tablet PO PRN (20:05)
[2022-06-09] MEDS ORDERED: mag hydrox/Alum hydrox/simeth 30ml oral suspension PO PRN (20:05)
[2022-06-09] MEDS ORDERED: potassium Cl 20 mEq SR tablet PO PRN ×2 (20:05)
[2022-06-09] MEDS ORDERED: magnesium 4gm in 100ml NS 100 ML IV PRN (20:05)
[2022-06-09] MEDS ORDERED: acetaminophen 325mg tablet PO PRN ×2 (20:05)
[2022-06-09] MEDS ORDERED: ondansetron/PF 4mg/2ml inj IV PRN (20:05)
[2022-06-09] MEDS: normal saline 500ml IV soln 500 ML IV SCH ×3 (20:15→22:28)
[2022-06-09] MEDS: normal saline 1000ml 1,000 ML IV SCH (20:22)
[2022-06-09 20:24] LABS: MAGNESIUM 2.3 MG/DL (1.5-2.4)
[2022-06-09 20:56] LABS: CLARITY,URINE SLIGHTLY CLOUDY (Clear); COLOR,URINE YELLOW (Yellow); GLUCOSE, URINE NEGATIVE (Neg); KETONES,URINE NEGATIVE (Neg); LEUKOCYTE ESTERASE ,URINE TRACE (Neg); NITRITES, URINE NEGATIVE (Neg); OCCULT BLOOD,URINE LARGE (Neg); PROTEIN,URINE NEGATIVE (Neg); UROBILINOGEN,URINE 0.2 E.U/dL (0.2-1.0)
[2022-06-09 20:57] LABS: UA COLLECTION TYPE STRAIGHT CATH
[2022-06-09 21:12] LABS: HYALINE CASTS >30 /LPF (NEGATIVE); SQUAMOUS EPITHELIAL CELL,UR FEW /LPF (FEW)
[2022-06-09 21:13] LABS: BACTERIA,URINE FEW /HPF (Neg); RBC,URINE TNTC /HPF (0-2); WBC,URINE 30-50 /HPF (0-4)
[2022-06-09 21:14] LABS: TRANSITIONAL EPI CELLS,URINE FEW /HPF; WBC CLUMPS,URINE MODERATE /HPF (NEGATIVE)
[2022-06-09 23:30] VITALS: BP 95/50
[2022-06-10] MEDS: normal saline 1000ml 1,000 ML IV SCH (01:03)
[2022-06-10 01:15] VITALS: BP 85/51
[2022-06-10] MEDS ORDERED: normal saline 500ml IV soln 500 ML IV ONE (01:50)
[2022-06-10 02:30] VITALS: BP 94/52
[2022-06-10 07:00] VITALS: BP 88/56
[2022-06-10 07:15] LABS: BASOPHILS % (AUTO) 0.5 % (0-1); EOSINOPHILS % (AUTO) 0.3 % (0-6); HEMOGLOBIN 10.4 g/dl (14.0-17.9); LYMPHOCYTES # (AUTO) 0.5 X10'3 (1.1-4.8); LYMPHOCYTES % (AUTO) 9.1 % (21-51); MEAN CORPUSCULAR HEMOGLOBIN 26.5 PG (27.0-31.0); MEAN CORPUSCULAR HGB CONC 31.5 g/dL (33.0-36.5); MEAN CORPUSCULAR VOLUME 84.2 FL (78-98); MEAN PLATELET VOLUME 9.6 FL (7.4-10.4); MONOCYTES # (AUTO) 0.7 X10'3 (0-0.9); MONOCYTES % (AUTO) 11.9 % (2-12); NEUTROPHILS # (AUTO) 4.5 X10'3 (1.8-7.7); NEUTROPHILS % (AUTO) 78.2 % (42-75); PLATELET COUNT 175 X10'3 (140-440); RED BLOOD COUNT 3.92 X10'6 (4.70-6.10); RED CELL DISTRIBUTION WIDTH 23.1 % (11.5-14.5); WHITE BLOOD COUNT 5.7 X10'3 (4.5-11.0)
[2022-06-10] MEDS: amiodarone 200mg tablet PO SCH ×2 (08:00→10:12)
[2022-06-10] MEDS: carVEDilol 3.125mg tablet PO SCH ×2 (08:00→21:08)
[2022-06-10] MEDS: K and/or MAG REPLACEMENT MC SCH ×2 (08:00→20:00)
[2022-06-10 08:39] LABS: ALANINE AMINOTRANSFERASE 27 U/L (12-78); ALBUMIN 2.3 G/DL (3.4-5.0); ALBUMIN/GLOBULIN RATIO 0.7 (1.1-1.5); ALKALINE PHOSPHATASE 122 IU/L (46-116); ANION GAP 14 (8-16); ASPARTATE AMINO TRANSFERASE 42 U/L (10-37); BILIRUBIN,TOTAL 2.2 MG/DL (0.1-1.0); BLOOD UREA NITROGEN 111 MG/DL (7-18); CALCIUM 8.6 MG/DL (8.5-10.1); CHLORIDE 103 MMOL/L (99-107); CREATININE 2.58 MG/DL (0.60-1.10); MAGNESIUM 2.3 MG/DL (1.5-2.4); POTASSIUM 4.8 MMOL/L (3.5-5.1); SODIUM 138 MMOL/L (135-145); TOTAL CARBON DIOXIDE 20.8 MMOL/L (24-32); TOTAL PROTEIN 5.5 G/DL (6.4-8.2); eGFR 24 ML/MIN
[2022-06-10 08:40] LABS: GLUCOSE 47 MG/DL (70-104)
--- NOTE | 2022-06-10 08:42 | NUR ---
CRITICAL LAB VALUE TAKEN FROM LAB, REPORTED TO PRIMARY RN.
[2022-06-10 08:43] VITALS: BP 112/63
--- NOTE | 2022-06-10 08:46 | NUR ---
Paged Dr Malone C+ cocci in clusters for blood cultures. radha 14A. FYI: BP 88/56, HR 70, A-V paced. Holding coreg and amiodarone. Valery [phone]
[2022-06-10] MEDS: docusate sod 100mg capsule PO SCH ×2 (08:50→21:08)
[2022-06-10] MEDS: CefTRIAXone/D5W-Rocephin 1gm 50 ML IV SCH (08:50)
[2022-06-10] MEDS: tamsulosin 0.4mg capsule PO SCH ×2 (08:50→21:08)
[2022-06-10] MEDS: levoTHYROXINE 75mcg tablet PO SCH (08:51)
[2022-06-10] MEDS: apixaban 2.5mg tablet PO SCH ×2 (08:51→21:07)
--- NOTE | 2022-06-10 08:54 | NUR ---
radha 14A. FYI: Savanna. 0630 glucose 47. Pt ate 120g CHO, recheck 914. Valery [id number]
[2022-06-10] MEDS: atorvastatin 20mg tablet PO SCH (08:55)
[2022-06-10] MEDS ORDERED: furosemide 20 MG/2 ML vial IV ONE (09:55)
--- NOTE | 2022-06-10 10:12 | NUR ---
Gave Amiodarone per Dr Malone
[2022-06-10] MEDS ORDERED: vancomycin/NS 1 GM ADD-VANTAGE 250 ML IV SCH ×2 (11:00→20:00)
[2022-06-10 12:15] VITALS: BP 88/49
--- NOTE | 2022-06-10 12:35 | NUR ---
Doug Consult: Doug Gibson w/ skin intact per physical assessment in EMR. Addendum: 06/10/22 at [address] Zuñiga RD Amended: Links added.
[2022-06-10] MEDS: vancomycin inj 500 MG in normal saline 100ml IV soln 100 ML IV SCH (12:38)
--- NOTE | 2022-06-10 13:51 | NUR ---
PRESSURE ULCER EDUCATION: DEFINITION: A pressure ulcer is an area of skin that breaks down when you stay in one position too long. The constant pressure against the skin reduces the blood flow to that area and the affected tissue dies. CAUSES: "Being bedridden or in a wheelchair "Fragile skin "Having a chronic condition, such as diabetes or vascular disease "Inability to move certain parts of your body without assistance "Older age "Incontinence of urine or stool SYMPTOMS: "A reddened area that DOES NOT turn white when pressed on - this can be the beginning of a pressure ulcer "A blister, deep sore or a crater - these can be advanced pressure ulcers FIRST AID: "Relieve the pressure on this area "Keep the area clean and dry "Call your primary doctor if you see any of the above symptoms "DO NOT massage the area "DO NOT use a donut shaped or ring shaped pillow- these actually interfere with the blood flow and cause complications PREVENTION: "Check for pressure ulcers everyday "Change position at least every two hours to relieve pressure "Use items that help relieve pressure- pillows, sheepskin, foam padding, and powders. "Keep skin clean and dry "Eat healthy well balanced meals "Exercise daily IF YOU SEE ANY OF THESE SYMPTOMS WHILE IN THE HOSPITAL - TELL YOUR NURSE IMMEDIATELY. IF YOU SEE ANY OF THESE SYMPTOMS WHILE AT HOME OR HAVE ANY QUESTIONS OR CONCERNS ABOUT PRESSURE ULCERS - CALL YOUR PRIMARY DOCTOR IMMEDIATELY. Addendum: 06/10/22 at 1351 by Barbara Watson LVN Amended: Links added.
--- NOTE | 2022-06-10 15:13 | NUR ---
Applied heel lift boots bilaterally. Pt endorses comfort
--- NOTE | 2022-06-10 18:51 | NUR ---
Spoke w/ pt, pt's brother and pt's adult daughter, Renaldo. All state they do not want pt brought back. Pt commented that he wants "to be let go; that he's tired". Paged Dr. Bolden w/ the following message @ 1950. ( "Re: Kody Figueroa Rm [id number] Family is requesting pt be made a DNR immediately in case something happens through the shift. Spoke w/ the brother and pt's adult daughter, Renaldo. Thanks, VIRGIE Brice " )
--- NOTE | 2022-06-10 18:59 | NUR ---
Paged Dr. 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 (Re: Kody Figueroa Rm 3014A Family is requesting pt be made a DNR immediately in case something happens through the shift. Spoke w/ the brother and pt's adult daughter, Renaldo. Thanks, YunielRN)
[2022-06-10 22:00] VITALS: BP 85/35
[2022-06-11] VITALS (7 sets, daily range): BP systolic 81–106; BP diastolic 47–54
[2022-06-11] MEDS: HYDROcodone/acetaminophen 5mg/325mg tablet PO PRN ×2 (00:38→20:41)
--- NOTE | 2022-06-11 03:09 | NUR ---
Pt moaning, stating he feels like he needs to have a BM but can't. Informed pt that he gets medication to assist with BMs. Placed pt on bedpan for about 20 minutes. Only result was a small smear. Told pt that we will try again later.
[2022-06-11 06:51] LABS: BASOPHILS % (AUTO) 0.2 % (0-1); EOSINOPHILS % (AUTO) 0.6 % (0-6); HEMATOCRIT 32.1 % (42.0-52.0); HEMOGLOBIN 10.2 g/dl (14.0-17.9); LYMPHOCYTES # (AUTO) 0.5 X10'3 (1.1-4.8); LYMPHOCYTES % (AUTO) 8.8 % (21-51); MEAN CORPUSCULAR HEMOGLOBIN 26.7 PG (27.0-31.0); MEAN CORPUSCULAR HGB CONC 31.8 g/dL (33.0-36.5); MEAN CORPUSCULAR VOLUME 83.8 FL (78-98); MEAN PLATELET VOLUME 9.8 FL (7.4-10.4); MONOCYTES # (AUTO) 0.9 X10'3 (0-0.9); MONOCYTES % (AUTO) 15.8 % (2-12); NEUTROPHILS # (AUTO) 4.4 X10'3 (1.8-7.7); NEUTROPHILS % (AUTO) 74.6 % (42-75); PLATELET COUNT 173 X10'3 (140-440); RED BLOOD COUNT 3.83 X10'6 (4.70-6.10); RED CELL DISTRIBUTION WIDTH 23.4 % (11.5-14.5); WHITE BLOOD COUNT 5.9 X10'3 (4.5-11.0)
[2022-06-11 07:10] LABS: ALANINE AMINOTRANSFERASE 22 U/L (12-78); ALBUMIN 2.2 G/DL (3.4-5.0); ALBUMIN/GLOBULIN RATIO 0.7 (1.1-1.5); ALKALINE PHOSPHATASE 122 IU/L (46-116); ANION GAP 11 (8-16); ASPARTATE AMINO TRANSFERASE 29 U/L (10-37); BILIRUBIN,TOTAL 1.5 MG/DL (0.1-1.0); BLOOD UREA NITROGEN 118 MG/DL (7-18); BUN/CREATININE RATIO 43.9 (5.4-32.0); CALCIUM 8.3 MG/DL (8.5-10.1); CHLORIDE 105 MMOL/L (99-107); CREATININE 2.69 MG/DL (0.60-1.10); GLUCOSE 105 MG/DL (70-104); MAGNESIUM 2.5 MG/DL (1.5-2.4); POTASSIUM 4.5 MMOL/L (3.5-5.1); SODIUM 138 MMOL/L (135-145); TOTAL CARBON DIOXIDE 22.3 MMOL/L (24-32); TOTAL PROTEIN 5.5 G/DL (6.4-8.2); eGFR 23 ML/MIN
[2022-06-11] MEDS: apixaban 2.5mg tablet PO SCH ×2 (07:26→20:41)
[2022-06-11] MEDS: tamsulosin 0.4mg capsule PO SCH ×2 (07:26→20:39)
[2022-06-11] MEDS: docusate sod 100mg capsule PO SCH ×2 (07:26→20:41)
[2022-06-11] MEDS: atorvastatin 20mg tablet PO SCH (07:27)
[2022-06-11] MEDS: CefTRIAXone/D5W-Rocephin 1gm 50 ML IV SCH (07:27)
[2022-06-11] MEDS: levoTHYROXINE 75mcg tablet PO SCH (07:28)
[2022-06-11] MEDS: amiodarone 200mg tablet PO SCH (07:28)
[2022-06-11 07:39] LABS: LARGE PLATELETS MODERATE; NUCLEATED RED BLOOD CELLS 2 /100WBC (0-0); PLATELET ESTIMATE NORMAL; TOTAL CELLS COUNTED 100
[2022-06-11 07:40] LABS: ANISOCYTOSIS 3+; ELLIPTOCYTES 1+; GIANT PLATELET FEW; HYPOCHROMASIA 1+; TEAR DROP CELLS 1+
[2022-06-11 07:41] LABS: BURR CELLS 1+; SCHISTOCYTES FEW
[2022-06-11] MEDS: carVEDilol 3.125mg tablet PO SCH ×2 (08:00→20:41)
[2022-06-11] MEDS: K and/or MAG REPLACEMENT MC SCH ×2 (08:00→20:00)
--- NOTE | 2022-06-11 10:19 | NUR ---
Paged Dr Malone: Landryba . FYI: Pt decompensating from yesterday. Now a total feed and unable to lift extremities. PT unable to work with him today, MAP of . Valery [phone] Addendum: 06/11/22 at 1539 by Valery Cassidy RN Performed wound care at 1400 per EMR orders with student RN. Pt tolerated well. Addendum: 06/11/22 at 1745 by Valery Cassidy RN [id number], despite pt objection. Pt refused boots/heel lifts, education provided. Total linen change with BM smear. Checked under mepilex, skin is okay--> Prophylactically placed.
[2022-06-11] MEDS: vancomycin inj 500 MG in normal saline 100ml IV soln 100 ML IV SCH (14:13)
--- NOTE | 2022-06-11 20:00 | NUR ---
Attempted to check BS. Pt refused. Will attempt again later. Addendum: 06/12/22 at 0111 by Krista Cassidy RN Amended: Links added.
[2022-06-11] MEDS: normal saline 1000ml 1,000 ML IV SCH (20:05)
[2022-06-12 02:00] VITALS: BP 94/59
[2022-06-12 06:00] VITALS: BP 86/55
--- NOTE | 2022-06-12 06:20 | NUR ---
received report from arleen joseph
[2022-06-12 06:58] LABS: ALANINE AMINOTRANSFERASE 22 U/L (12-78); ALBUMIN 2.2 G/DL (3.4-5.0); ALBUMIN/GLOBULIN RATIO 0.6 (1.1-1.5); ALKALINE PHOSPHATASE 117 IU/L (46-116); ANION GAP 10 (8-16); ASPARTATE AMINO TRANSFERASE 26 U/L (10-37); BILIRUBIN,TOTAL 1.3 MG/DL (0.1-1.0); BLOOD UREA NITROGEN 110 MG/DL (7-18); BUN/CREATININE RATIO 43.5 (5.4-32.0); CALCIUM 8.1 MG/DL (8.5-10.1); CHLORIDE 105 MMOL/L (99-107); CREATININE 2.53 MG/DL (0.60-1.10); GLUCOSE 97 MG/DL (70-104); MAGNESIUM 2.6 MG/DL (1.5-2.4); POTASSIUM 4.3 MMOL/L (3.5-5.1); SODIUM 138 MMOL/L (135-145); TOTAL CARBON DIOXIDE 22.8 MMOL/L (24-32); TOTAL PROTEIN 5.6 G/DL (6.4-8.2); eGFR 25 ML/MIN
[2022-06-12 07:00] LABS: BASOPHILS % (AUTO) 0.5 % (0-1); EOSINOPHILS # (AUTO) 0.1 X10'3 (0-0.9); EOSINOPHILS % (AUTO) 0.9 % (0-6); HEMATOCRIT 32.6 % (42.0-52.0); HEMOGLOBIN 10.1 g/dl (14.0-17.9); LYMPHOCYTES # (AUTO) 0.5 X10'3 (1.1-4.8); LYMPHOCYTES % (AUTO) 8.6 % (21-51); MEAN CORPUSCULAR HGB CONC 30.9 g/dL (33.0-36.5); MEAN CORPUSCULAR VOLUME 84.1 FL (78-98); MEAN PLATELET VOLUME 9.5 FL (7.4-10.4); MONOCYTES # (AUTO) 0.9 X10'3 (0-0.9); MONOCYTES % (AUTO) 14.8 % (2-12); NEUTROPHILS # (AUTO) 4.5 X10'3 (1.8-7.7); NEUTROPHILS % (AUTO) 75.2 % (42-75); PLATELET COUNT 161 X10'3 (140-440); RED BLOOD COUNT 3.88 X10'6 (4.70-6.10); RED CELL DISTRIBUTION WIDTH 23.2 % (11.5-14.5)
[2022-06-12] MEDS: CefTRIAXone/D5W-Rocephin 1gm 50 ML IV SCH (07:35)
[2022-06-12] MEDS: amiodarone 200mg tablet PO SCH (07:53)
[2022-06-12] MEDS: atorvastatin 20mg tablet PO SCH (07:53)
[2022-06-12] MEDS: levoTHYROXINE 75mcg tablet PO SCH (07:53)
[2022-06-12] MEDS: apixaban 2.5mg tablet PO SCH ×2 (07:54→20:53)
[2022-06-12] MEDS: tamsulosin 0.4mg capsule PO SCH ×2 (07:54→20:53)
[2022-06-12] MEDS: docusate sod 100mg capsule PO SCH ×2 (07:54→20:54)
[2022-06-12] MEDS: carVEDilol 3.125mg tablet PO SCH ×2 (07:54→20:54)
--- NOTE | 2022-06-12 08:00 | NUR ---
reviewed/altered delivery professional physical assessment
[2022-06-12] MEDS: K and/or MAG REPLACEMENT MC SCH ×2 (08:08→20:00)
[2022-06-12] MEDS: vancomycin inj 500 MG in normal saline 100ml IV soln 100 ML IV SCH (11:50)
[2022-06-12 16:00] VITALS: BP 88/58
[2022-06-12 18:00] VITALS: BP 98/65
--- NOTE | 2022-06-12 18:14 | NUR ---
Report given to Yuniel GARVIN.
--- NOTE | 2022-06-12 20:10 | NUR ---
Found pt on bedpan. Asked CNAs on the floor and neither of them had placed pt on it. Unsure if day VETERINARY TOXICOLOGIST or family left pt on bedpan. No redness noted and pt denies discomfort. Condom catheter changed d/t it leaking. Addendum: 06/12/22 at 2202 by Krista Cassidy RN Asked another VETERINARY TOXICOLOGIST and she stated she had placed pt on bedpan at approx. 1945. Pt just had not called to be taken off.
[2022-06-12] MEDS: HYDROcodone/acetaminophen 5mg/325mg tablet PO PRN (20:53)
[2022-06-13 02:00] VITALS: BP 81/55
--- NOTE | 2022-06-13 03:15 | NUR ---
Attemped to check pt's BS 3 times; pt continues to refuse. Stating he is NOT diabetic and he is tired of getting stuck.
[2022-06-13 06:50] LABS: BASOPHILS % (AUTO) 0.3 % (0-1); EOSINOPHILS % (AUTO) 0.5 % (0-6); HEMOGLOBIN 10.1 g/dl (14.0-17.9); LYMPHOCYTES # (AUTO) 0.4 X10'3 (1.1-4.8); LYMPHOCYTES % (AUTO) 6.6 % (21-51); MEAN CORPUSCULAR HGB CONC 30.5 g/dL (33.0-36.5); MEAN PLATELET VOLUME 9.8 FL (7.4-10.4); MONOCYTES # (AUTO) 0.8 X10'3 (0-0.9); MONOCYTES % (AUTO) 12.1 % (2-12); NEUTROPHILS # (AUTO) 5.4 X10'3 (1.8-7.7); NEUTROPHILS % (AUTO) 80.5 % (42-75); PLATELET COUNT 152 X10'3 (140-440); RED BLOOD COUNT 3.89 X10'6 (4.70-6.10); RED CELL DISTRIBUTION WIDTH 23.9 % (11.5-14.5); WHITE BLOOD COUNT 6.8 X10'3 (4.5-11.0)
[2022-06-13 06:57] LABS: ALANINE AMINOTRANSFERASE 21 U/L (12-78); ALBUMIN 2.2 G/DL (3.4-5.0); ALBUMIN/GLOBULIN RATIO 0.6 (1.1-1.5); ALKALINE PHOSPHATASE 121 IU/L (46-116); ANION GAP 9 (8-16); ASPARTATE AMINO TRANSFERASE 22 U/L (10-37); BILIRUBIN,TOTAL 1.1 MG/DL (0.1-1.0); BLOOD UREA NITROGEN 106 MG/DL (7-18); BUN/CREATININE RATIO 46.9 (5.4-32.0); CALCIUM 8.1 MG/DL (8.5-10.1); CHLORIDE 104 MMOL/L (99-107); CREATININE 2.26 MG/DL (0.60-1.10); GLUCOSE 92 MG/DL (70-104); MAGNESIUM 2.6 MG/DL (1.5-2.4); POTASSIUM 4.5 MMOL/L (3.5-5.1); SODIUM 135 MMOL/L (135-145); TOTAL CARBON DIOXIDE 21.9 MMOL/L (24-32); TOTAL PROTEIN 5.7 G/DL (6.4-8.2); eGFR 28 ML/MIN
[2022-06-13 07:00] VITALS: BP 93/53
--- NOTE | 2022-06-13 07:07 | NUR ---
Patient in room U 3023. I have received report from Yuniel GARVIN and had the opportunity to ask questions and assume patient care. Addendum: 06/13/22 at 0708 by Hussein Lim LVN Amended: Links added.
[2022-06-13 07:46] LABS: ANISOCYTOSIS 3+; BURR CELLS 2+; ELLIPTOCYTES 1+; HYPOCHROMASIA 1+; LARGE PLATELETS FEW; PLATELET ESTIMATE NORMAL; POLYCHROMASIA FEW; SCHISTOCYTES FEW
[2022-06-13] MEDS: docusate sod 100mg capsule PO SCH ×2 (07:59→21:17)
[2022-06-13] MEDS: tamsulosin 0.4mg capsule PO SCH ×2 (07:59→21:17)
[2022-06-13] MEDS: carVEDilol 3.125mg tablet PO SCH ×2 (08:00→21:25)
[2022-06-13] MEDS: K and/or MAG REPLACEMENT MC SCH ×2 (08:00→20:00)
[2022-06-13] MEDS: amiodarone 200mg tablet PO SCH (08:04)
[2022-06-13] MEDS: levoTHYROXINE 75mcg tablet PO SCH (08:04)
[2022-06-13] MEDS: atorvastatin 20mg tablet PO SCH (08:04)
[2022-06-13] MEDS: CefTRIAXone/D5W-Rocephin 1gm 50 ML IV SCH (08:07)
[2022-06-13] MEDS: apixaban 2.5mg tablet PO SCH ×2 (08:07→21:18)
[2022-06-13] MEDS ORDERED: LEVO-65 PO (10:01)
[2022-06-13 11:13] VITALS: BP 96/53
[2022-06-13] MEDS ORDERED: VANCOMYCIN LEVEL IV ONE (11:30)
[2022-06-13] MEDS: vancomycin inj 500 MG in normal saline 100ml IV soln 100 ML IV SCH (12:19)
--- NOTE | 2022-06-13 12:52 | NUR ---
O2 Sat at rest on room air:__85_% If below 89%: Recovery O2 Sat at rest on _3__LPM:__93_%:___% via nasal cannula (mask/nasal cannula, etc..) No further documentation is necessary. If O2 Sat did not drop below 89% on room air,ambulate patient on room air. O2 Sat while ambulating on room air:___% Recovery O2 Sat while ambulating on ___LPM:___% No further documentation is necessary. If patient does not drop below 89% while ambulating, he/she does not qualify for home O2.
--- NOTE | 2022-06-13 15:59 | NUR ---
Pt daughter called. discharge order in place. Birgit unable to bead picker patient due to being snowed in [place]. Pt brother unable to bead picker patient due to being snowed in. MD Paged. Page Sent promotional table spacer PAGER ID: [phone] MESSAGE: [id number]- Grisbalda- Pt should be discharged today. Family unable to bead picker patient due to snow. FYI. Rickey OTOOLE
[2022-06-13 18:00] VITALS: BP 88/52
--- NOTE | 2022-06-13 18:30 | NUR ---
Problems reprioritized. Patient report given, questions answered & plan of care reviewed with Meredith MCLAUGHLIN. Bedside report given.
--- NOTE | 2022-06-13 18:59 | NUR ---
3 Blankets and 3 pillows when weighing patient Addendum: 06/13/22 at 1859 by Hussein Lim LVN Amended: Links added.
[2022-06-13] MEDS: normal saline 1000ml 1,000 ML IV SCH (20:05)
[2022-06-13 22:00] VITALS: BP 122/61
--- NOTE | 2022-06-14 01:41 | NUR ---
REVIEWED DIRECTOR UNIVERSITY CHARTING AND IN AGREEMENT.
[2022-06-14 02:00] VITALS: BP 118/57
--- NOTE | 2022-06-14 06:05 | NUR ---
Problems reprioritized. Patient report given, questions answered & plan of care reviewed with Hussein MCLAUGHLIN.
--- NOTE | 2022-06-14 06:52 | NUR ---
Patient in room PCU 3023. I have received report from Meredith MCLAUGHLIN and had the opportunity to ask questions and assume patient care. Assemblies And Installations Inspector and offcoming nurse changed patient due to urine incontinence and small soft bm. Perineal care provided. Pt repositioned. No issues to sacrum. Hand hygeine performed. Dentures cleaned and provided to patient to insert top denture set.
[2022-06-14 07:00] VITALS: BP 98/52
[2022-06-14] MEDS: carVEDilol 3.125mg tablet PO SCH (08:00)
[2022-06-14] MEDS: K and/or MAG REPLACEMENT MC SCH (08:00)
[2022-06-14 08:03] LABS: BASOPHILS % (AUTO) 0.4 % (0-1); EOSINOPHILS % (AUTO) 0.4 % (0-6); HEMATOCRIT 33.7 % (42.0-52.0); HEMOGLOBIN 10.6 g/dl (14.0-17.9); LYMPHOCYTES # (AUTO) 0.4 X10'3 (1.1-4.8); LYMPHOCYTES % (AUTO) 6.2 % (21-51); MEAN CORPUSCULAR HEMOGLOBIN 26.8 PG (27.0-31.0); MEAN CORPUSCULAR HGB CONC 31.3 g/dL (33.0-36.5); MEAN CORPUSCULAR VOLUME 85.6 FL (78-98); MEAN PLATELET VOLUME 9.5 FL (7.4-10.4); MONOCYTES # (AUTO) 0.6 X10'3 (0-0.9); NEUTROPHILS # (AUTO) 5.2 X10'3 (1.8-7.7); PLATELET COUNT 156 X10'3 (140-440); RED BLOOD COUNT 3.94 X10'6 (4.70-6.10); RED CELL DISTRIBUTION WIDTH 23.7 % (11.5-14.5); WHITE BLOOD COUNT 6.2 X10'3 (4.5-11.0)
[2022-06-14] MEDS: atorvastatin 20mg tablet PO SCH (08:12)
[2022-06-14] MEDS: amiodarone 200mg tablet PO SCH (08:12)
[2022-06-14] MEDS: tamsulosin 0.4mg capsule PO SCH (08:12)
[2022-06-14] MEDS: docusate sod 100mg capsule PO SCH (08:12)
[2022-06-14] MEDS: levoTHYROXINE 75mcg tablet PO SCH (08:12)
[2022-06-14] MEDS: apixaban 2.5mg tablet PO SCH (08:12)
[2022-06-14] MEDS: CefTRIAXone/D5W-Rocephin 1gm 50 ML IV SCH (09:00)
--- NOTE | 2022-06-14 09:20 | NUR ---
PIC nurse paged. [id number]- Henry- PIV attempted x 2. Unable to start IV. Need assistance for AM IV meds. Rickey Lim LVN Addendum: 06/14/22 at 0924 by Hussein Lim LVN Discussed with Charge Nurse. Pt will d/C home with PO NABEELB. Roberto Payne. Disregard on PIV. Pt will be D/C home on PO ATB. Thanks. Rickey Lim LVN.
--- NOTE | 2022-06-14 09:25 | NUR ---
Birgit daughter called. Pt is cleared for discharge. LVM.
[2022-06-14 09:41] LABS: ALANINE AMINOTRANSFERASE 22 U/L (12-78); ALBUMIN 2.4 G/DL (3.4-5.0); ALBUMIN/GLOBULIN RATIO 0.7 (1.1-1.5); ALKALINE PHOSPHATASE 118 IU/L (46-116); ANION GAP 11 (8-16); ASPARTATE AMINO TRANSFERASE 26 U/L (10-37); BILIRUBIN,TOTAL 1.2 MG/DL (0.1-1.0); BLOOD UREA NITROGEN 101 MG/DL (7-18); CALCIUM 8.2 MG/DL (8.5-10.1); CHLORIDE 103 MMOL/L (99-107); CREATININE 2.15 MG/DL (0.60-1.10); GLUCOSE 104 MG/DL (70-104); POTASSIUM 4.1 MMOL/L (3.5-5.1); SODIUM 137 MMOL/L (135-145); TOTAL CARBON DIOXIDE 22.8 MMOL/L (24-32); eGFR 30 ML/MIN
[2022-06-14 11:00] VITALS: BP 90/56
--- NOTE | 2022-06-14 11:56 | NUR ---
Jacquard Loom Card Changer called Birgit and Lee, primary contacts and no answer. LVM.
[2022-06-14] MEDS ORDERED: VANCOMYCIN 750MG IV in NS 250 ML IV SCH (12:00)
--- NOTE | 2022-06-14 12:57 | NUR ---
Bounty Hunter placed call to Lee, no answer, Left VM
--- NOTE | 2022-06-14 13:01 | NUR ---
Pt will be discharging today. Med switch to PO for D/C.
--- NOTE | 2022-06-14 13:05 | NUR ---
Paged. Page Sent PAGER ID: [phone] MESSAGE: [id number]- Atyccswr. Family is not answering their phones to merchandise pickup/receiving associate patient. RNCM involved. FYI. Rickey Lim LVN
--- NOTE | 2022-06-14 16:32 | NUR ---
All written and verbal instructions provided to pt, pt's son, and pt's brother. All questions answered. Telebox discontinued. Pt leaving home with [employer] portable oxygen conentrator @ 3 LPM via nasal cannula. Credit Associate reviewed oxygen precautions. Pt has a furnace in home that family will figure out how to keep oxygen away from flame 10ft. Credit Associate kimberly explained CHF exaberation and current EF10% as per MD notes. Family will discuss patient's wishes when they get home with the family. Pt was ambulated to personal vehicle via wheelchair. Addendum: 06/14/22 at 1642 by Hussein Lim LVN Amended: Links added.
--- NOTE | 2022-06-14 17:41 | NUR ---
I AGREE WITH YARED CONSTRUCTION CREW MEMBER ASSESSMENT.
[2022-06-17] MEDS ORDERED: VANCOMYCIN LEVEL IV ONE (11:30)
== END 2022-06-14 15:10 | disposition home or self-care (01) | DRG 689 ==
LOC: ER 11:10 → ED HOLD 20:11 → PCU 3S 23:15
PROVIDERS: ADMIT Family Medicine; ATTEND Internal Medicine
DX: N39.0 Urinary tract infection, site not specified (principal); E43 Unspecified severe protein-calorie malnutrition; G93.41 Metabolic encephalopathy; L03.113 Cellulitis of right upper limb; I13.0 Hypertensive heart and chronic kidney disease with heart failure and stage 1 through stage 4 chronic kidney disease, or unspecified chronic kidney disease; N18.4 Chronic kidney disease, stage 4 (severe); E03.9 Hypothyroidism, unspecified; E78.00 Pure hypercholesterolemia, unspecified; E86.0 Dehydration; I25.5 Ischemic cardiomyopathy; I48.0 Paroxysmal atrial fibrillation; E78.5 Hyperlipidemia, unspecified; I50.84 End stage heart failure; N40.0 Benign prostatic hyperplasia without lower urinary tract symptoms; Z66 Do not resuscitate; Z68.34 Body mass index [BMI] 34.0-34.9, adult; Z79.899 Other long term (current) drug therapy; Z79.01 Long term (current) use of anticoagulants; Z90.49 Acquired absence of other specified parts of digestive tract; Z86.73 Personal history of transient ischemic attack (TIA), and cerebral infarction without residual deficits
CPT/HCPCS: 36415; 70450; 71045; 73020; 80053; 80202; 80320; 81001; 82948; 83605; 83735; 83880; 84443; 84484; 85007; 85008; 85025; 87040; 87077; 87081; 87088; 87186; 92508; 92616; 93005; 97110; 97161; 97530; 99285; A4349; A4649; A5200; A6196; A6212; A6213; A6258; A6446; A6449; A6455; G0378; J0696; J1940; J3370; J3490; J7030; J7040